=== PATIENT | female | born 1995 | race Hispanic/Latino ===

== ENCOUNTER 2018-05-12 10:37 | Emergency (ER) | payer SELFPAY ==
[2018-05-12 11:55] LABS: Urine Bacteria <20 /HPF (<20); Urine Culture Reflex Order NOT NEEDED; Urine Mucus 2+ /HPF (NONE SEEN)
[2018-05-12 12:05] LABS: Urine Blood TRACE (NEG); Urine Glucose NEGATIVE (NEG); Urine Protein NEGATIVE (NEG); Urine Specific Gravity 1.025 (1.005-1.030)
--- NOTE | 2018-05-12 12:05 | RAD REPORT ---
EXAM DESCRIPTION: US - Abdomen Exam Limited - 05/12/2018 11:57 am CLINICAL HISTORY: Abdominal pain, right upper quadrant pain COMPARISON: CT June 2015 FINDINGS: No gallstones, sludge or other abnormalities within the gallbladder lumen. There is no wal l thickening or pericholecystic fluid. No common duct stone or biliary tree dilatation identified. IMPRESSION: Normal gallbladder and biliary tree ultrasound.
[2018-05-12 12:09] LABS: Absolute Lymphocytes (CBC) 1.7 K/uL (0.7-4.9); Absolute Monocytes 0.7 K/uL (0.1-1.3); Absolute Neutrophil 6.3 K/uL (1.8-8.0); Basophils % 0.5 % (0-1.3); Eosinophils % 0.8 % (0-4.4); Hematocrit 40.8 % (36.0-45.0); Lymphocytes % 19.2 % (15.3-44.8); MCH 29.8 pg (27.0-35.0); MCV 87.1 fL (80-100); Monocytes % 7.8 % (3.3-12.3); RBC Red Blood Cell Count 4.69 M/uL (3.86-4.86)
[2018-05-12 12:27] LABS: ALT/SGPT 34 U/L (12-78); AST/SGOT 19 U/L (15-37); Albumin 4.6 g/dL (3.4-5.0); Alkaline Phosphatase 95 U/L (45-117); BUN Blood Urea Nitrogen 12 mg/dL (7-18); Bicarbonate 28 mmol/L (21-32); Bilirubin Direct 0.2 mg/dL (0-0.2); Bilirubin Total 0.8 mg/dL (0.2-1.0); Glucose Level 82 mg/dL (74-106); Potassium 3.6 mmol/L (3.5-5.1); Protein, Total 8.6 g/dL (6.4-8.2); Sodium Level 137 mmol/L (136-145)
[2018-05-12] MEDS ORDERED: ONDANSETRON 4 MG/2 ML VIAL ONE (13:26)
[2018-05-12] MEDS ORDERED: MORPHINE 4 MG/ML SYR ONE (13:27)
--- NOTE | 2018-05-12 14:07 | RAD REPORT ---
EXAM DESCRIPTION: US - Transvaginal Study Probe - 05/12/2018 1:55 pm CLINICAL HISTORY: ABD PAIN Pelvic pain. COMPARISON: No comparisons FINDINGS: The uterus is normal in size, shape and echotexture. The uterus measures 7.2 x 4.8 x 3.0 c m. The endometrial stripe measures 8 mm, normal. The patient's left fallopian tube and ovary has been removed. Right ovarian slightly complicated cyst is present measuring 3.6 x 3.5 cm. Overall, right ovarian siz e is 4.9 x 4.3 x 4.3 cm. Normal blood flow is seen to the right ovary. No significant pelvic ascites. IMPRESSION: Right ovarian cyst, likely physiologic, measuring 3.6 x 3.5 cm.
--- NOTE | 2018-05-12 14:33 | RAD REPORT ---
EXAM DESCRIPTION: CTAbdomen Pelvis W Contrast - 05/12/2018 2:22 pm CLINICAL HISTORY: Abdominal pain. RLQ;Abd pain COMPARISON: CT ABD PELVIS W CONTRAST dated 06/20/2015; Transvaginal Study Probe dated 05/12/2018 TECHNIQUE: Biphasic CT imaging of the abdomen and pelvis was performed with 100 ml non-ionic IV cont rast. All CT scans are performed using dose optimization technique as appropriate and may include automated exposure control or mA/KV adjustment according to patient size. FINDINGS: The lung bases are clear. The liver, spleen, pancreas, adrenal glands and kidneys are within normal limits. No bowel obstruction, free air, free fluid or abscess. The appendix is normal. No evidence of signi ficant lymphadenopathy. No suspicious bony findings. 3-4 cm right ovarian cyst noted, likely functional/ physiologic in etiol ogy. IMPRESSION: No acute intra-abdominal or pelvic finding. 3-4 cm right ovarian cyst noted as detailed.
[2018-05-12] MEDS ORDERED: MEPERIDINE HCL 25 MG/0.5 ML ONE (14:56)
--- NOTE | 2018-05-12 15:12 | ER ---
Nurse's Notes [facility] Name: Roxanna Nice Age: 23 yrs Sex: Female : 1995 Arrival Date: 05/12/2018 Time: 10:50 Bed 18 Private MD: None, None Diagnosis: Abdominal and pelvic pain;Other ovarian cysts Presentation: 05/12 11:16 Presenting complaint: RLQ pain and N/V since last night. Denies fever/diarrhea/urinary hb s/s. Transition of care: patient was not received from another setting of care. Onset of symptoms was May 11, 2018. Risk Assessment: Do you want to hurt yourself or someone else? Patient reports no desire to harm self or others. Initial Sepsis Screen: Does the patient meet any 2 criteria?. Care prior to arrival: None. 11:16 Method Of Arrival: Ambulatory hb 11:16 Acuity: ANA 3 hb 12:45 Initial Sepsis Screen: Does the patient have a suspected source of infection? No. em Patient's initial sepsis screen is negative. 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 - Social history:: Smoking status: Patient/guardian denies using tobacco. - Ebola Screening: : No symptoms or risks identified at this time. Screenin:34 Abuse screen: Denies threats or abuse. Denies injuries from another. Nutritional iw screening: No deficits noted. Tuberculosis screening: No symptoms or risk factors identified. Fall Risk IV access (20 points). Assessment: 11:45 General: Appears in no apparent distress. uncomfortable, Behavior is calm, cooperative, em Denies fever. Pain: Complains of pain in right lower quadrant Pain currently is 8 out of 10 on a pain scale. Neuro: Level of Consciousness is awake, alert, obeys commands, Oriented to person, place, time, situation. Cardiovascular: Capillary refill Patient's skin is warm and dry. Respiratory: Airway is patent Respiratory effort is even, unlabored, Respiratory pattern is regular, symmetrical. GI: Abdomen is flat, Bowel sounds present X 4 quads. Abd is soft X 4 quads Abdomen is tender to palpation in right lower quadrant Reports nausea, vomiting. : Urine is clear. EENT: No signs and/or symptoms were reported regarding the EENT system. Derm: Skin is intact, Skin is pink, warm \T\ dry. Musculoskeletal: Range of motion: intact in all extremities. 12:50 Reassessment: Patient appears in no apparent distress at this time. Patient and/or em family updated on plan of care and expected duration. Pain level reassessed. Patient is alert, oriented x 3, equal unlabored respirations, skin warm/dry/pink. pt request pain medication, rates pain 8/10, provider notified, new medication orders received. 13:33 Reassessment: Patient appears in no apparent distress at this time. Patient and/or iw family updated on plan of care and expected duration. Pain level reassessed. Patient is alert, oriented x 3, equal unlabored respirations, skin warm/dry/pink. pt rates pain 7/10 to RLQ, pt has been medicated for pain, pt updated on POC and CT time, call light within reach, curtain pulled for privacy. 14:30 Reassessment: Patient appears in no apparent distress at this time. Patient and/or em family updated on plan of care and expected duration. Pain level reassessed. Patient is alert, oriented x 3, equal unlabored respirations, skin warm/dry/pink. reports pain medication did not help, provider notified, new medication orders received. 14:55 Reassessment: pt currently resting with eyes closed, reports pain is intermittent, em reports no pain currently. Vital Signs: 11:17 BP 140 / 84; Pulse 76; Resp 16; Temp 98.1; Pulse Ox 100% on R/A; Pain 9/10; hb 13:32 BP 130 / 74; Pulse 91; Resp 16; Pulse Ox 100% on R/A; Pain 7/10; iw 14:41 BP 141 / 75; Pulse 83; Resp 16; Pulse Ox 99% on R/A; Pain 8/10; em 15:35 BP 142 / 67; Pulse 81; Resp 16; Pulse Ox 100% on R/A; Pain 0/10; em ED Course: 10:50 Patient arrived in ED. mr 10:50 None, None is Private Physician. mr 11:17 Triage completed. hb 11:21 Lucas Capellan MD is Attending Physician. kdr 11:25 Jose Eduardo Hinson LVN is Primary Nurse. em 11:39 Urine collected: clean catch specimen, clear, jahaira colored, Amount Voided: 80mL. jp3 11:39 Urine Culture Sent. jp3 11:39 Urine Microscopic Only Sent. jp3 11:57 US Abdomen Limited In Process Unspecified. EDMS 12:00 Initial lab(s) drawn, by me, sent to lab. Inserted saline lock: 20 gauge in right jp3 antecubital area, using aseptic technique. Blood collected. 12:13 Patient has correct armband on for positive identification. Placed in gown. Bed in low jp3 position. Call light in reach. Side rails up X 1. Warm blanket given. Pillow given. Pulse ox on. NIBP on. 12:14 Creatinine for Radiology Sent. jp3 12:14 Hepatic Function Sent. jp3 12:14 CBC with Diff Sent. jp3 12:14 Basic Metabolic Panel Sent. jp3 13:32 Arm band placed on. iw 13:48 US Transvaginal Study (Probe) In Process Unspecified. EDMS 13:49 Ultrasound completed. Patient moved back from ultrasound. lc3 14:24 CT Abd/Pelvis - W/Contrast In Process Unspecified. EDMS 15:33 No provider procedures requiring assistance completed. IV discontinued, intact, em bleeding controlled, No redness/swelling at site. Pressure dressing applied. Administered Medications: 13:31 Drug: Zofran 4 mg Route: IVP; Site: right antecubital; iw 14:46 Follow up: Response: No adverse reaction em 13:32 Drug: morphine 4 mg Route: IVP; Site: right antecubital; iw 14:46 Follow up: Response: No adverse reaction em 15:38 Not Given (Physician Discretion): Demerol 25 mg IVP once em Outcome: 15:07 Discharge ordered by . kdr 15:42 Discharged to home ambulatory. em 15:42 Condition: good 15:42 Discharge instructions given to patient, Instructed on discharge instructions, follow up and referral plans. medication usage, Demonstrated understanding of instructions, follow-up care, medications, Prescriptions given X 3. 15:42 Patient left the ED. em Signatures: Dispatcher [employer] EDMS Lucas Capellan MD MD kdr Rivera, Mary mr Sravan, Jose Eduardo, [address] em Stormy Mujica, JENNIFER RN Girish Russell Heather, RN RN Samuel Sosa jp3
--- NOTE | 2018-05-12 15:13 | EDPHYS ---
Physician Documentation [facility] Name: Roxanna Nice Age: 23 yrs Sex: Female : 1995 Arrival Date: 05/12/2018 Time: 10:50 Bed 18 Private MD: None, None ED Physician Lucas Capellan HPI: 05/12 11:53 This 23 yrs old Female presents to ER via Ambulatory with complaints of kdr Abdominal Pain. 11:53 The patient presents with abdominal pain right lower quadrant. Onset: The kdr symptoms/episode began/occurred yesterday, last night. The symptoms do not radiate. Associated signs and symptoms: Pertinent positives: nausea and vomiting, headache, Pertinent negatives: anorexia, blood in stools, chest pain, constipation, diarrhea, dysuria, fever, headache, hematuria, palpitations, shortness of breath, vaginal discharge, vomiting, vomiting blood. The symptoms are described as achy, crampy, intermittent, waxing/waning. Modifying factors: The symptoms are alleviated by nothing, the symptoms are aggravated by breathing deeply, movement, pressure, touching the area, walking. Severity of pain: At its worst the pain was moderate in the emergency department the pain has improved moderately. The patient has not experienced similar symptoms in the past. The patient has not recently seen a physician. The patient has only one fallopian tube on the right. 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 - Social history:: Smoking status: Patient/guardian denies using tobacco. - Ebola Screening: : No symptoms or risks identified at this time. ROS: 11:53 Constitutional: Negative for fever, chills, and weight loss, Eyes: Negative for injury, kdr pain, redness, and discharge, ENT: Negative for injury, pain, and discharge, Neck: Negative for injury, pain, and swelling, Cardiovascular: Negative for chest pain, palpitations, and edema, Respiratory: Negative for shortness of breath, cough, wheezing, and pleuritic chest pain, Back: Negative for injury and pain, : Negative for injury, bleeding, discharge, and swelling, MS/Extremity: Negative for injury and deformity, Skin: Negative for injury, rash, and discoloration, Neuro: Negative for headache, weakness, numbness, tingling, and seizure activity. Psych: Negative for depression, anxiety, suicide ideation, homicidal ideation, and hallucinations, Allergy/Immunology: Negative for hives, rash, and allergies, Endocrine: Negative for neck swelling, polydipsia, polyuria, polyphagia, and marked weight changes, Hematologic/Lymphatic: Negative for swollen nodes, abnormal bleeding, and unusual bruising. 11:53 Abdomen/GI: Positive for abdominal pain, Negative for nausea, vomiting, and diarrhea, abdominal distension, black/tarry stool, rectal pain, rectal bleeding, bowel incontinence. Exam: 11:53 Constitutional: This is a well developed, well nourished patient who is awake, alert, kdr and in no acute distress. Head/Face: Normocephalic, atraumatic. Eyes: Pupils equal round and reactive to light, extra-ocular motions intact. Lids and lashes normal. Conjunctiva and sclera are non-icteric and not injected. Cornea within normal limits. Periorbital areas with no swelling, redness, or edema. ENT: Nares patent. No nasal discharge, no septal abnormalities noted. Tympanic membranes are normal and external auditory canals are clear. Oropharynx with no redness, swelling, or masses, exudates, or evidence of obstruction, uvula midline. Mucous membranes moist. Neck: Trachea midline, no thyromegaly or masses palpated, and no cervical lymphadenopathy. Supple, full range of motion without nuchal rigidity, or vertebral point tenderness. No Meningismus. Chest/axilla: Normal chest wall appearance and motion. Nontender with no deformity. No lesions are appreciated. Cardiovascular: Regular rate and rhythm with a normal S1 and S2. No gallops, murmurs, or rubs. Normal PMI, no JVD. No pulse deficits. Respiratory: Lungs have equal breath sounds bilaterally, clear to auscultation and percussion. No rales, rhonchi or wheezes noted. No increased work of breathing, no retractions or nasal flaring. Abdomen/GI: Soft, non-tender, with normal bowel sounds. No distension or tympany. No guarding or rebound. No evidence of tenderness throughout. Back: No spinal tenderness. No costovertebral tenderness. Full range of motion. Skin: Warm, dry with normal turgor. Normal color with no rashes, no lesions, and no evidence of cellulitis. MS/ Extremity: Pulses equal, no cyanosis. Neurovascular intact. Full, normal range of motion. Neuro: Awake and alert, GCS 15, oriented to person, place, time, and situation. Cranial nerves II-XII grossly intact. Motor strength 5/5 in all extremities. Sensory grossly intact. Cerebellar exam normal. Normal gait. Psych: Awake, alert, with orientation to person, place and time. Behavior, mood, and affect are within normal limits. Vital Signs: 11:17 BP 140 / 84; Pulse 76; Resp 16; Temp 98.1; Pulse Ox 100% on R/A; Pain 9/10; hb 13:32 BP 130 / 74; Pulse 91; Resp 16; Pulse Ox 100% on R/A; Pain 7/10; iw 14:41 BP 141 / 75; Pulse 83; Resp 16; Pulse Ox 99% on R/A; Pain 8/10; em 15:35 BP 142 / 67; Pulse 81; Resp 16; Pulse Ox 100% on R/A; Pain 0/10; em MDM: 15:07 Patient medically screened. kdr 17:50 Data reviewed: vital signs, nurses notes, lab test result(s), radiologic studies. kdr Counseling: I had a detailed discussion with the patient and/or guardian regarding: the historical points, exam findings, and any diagnostic results supporting the discharge/admit diagnosis, lab results, radiology results, the need for outpatient follow up. 05/12 11:01 Order name: Urine Culture snw 05/12 11:01 Order name: Urine Microscopic Only; Complete Time: 13:00 snw 05/12 11:39 Order name: Basic Metabolic Panel; Complete Time: 13:00 kdr 12 11:39 Order name: CBC with Diff; Complete Time: 13:00 kdr 12 11:39 Order name: Creatinine for Radiology; Complete Time: 13:00 kdr 12 11:39 Order name: Hepatic Function; Complete Time: 13:00 kdr 12 11:39 Order name: CT Abd/Pelvis - W/Contrast; Complete Time: 15:05 kdr 12 11:39 Order name: US Abdomen Limited; Complete Time: 13:00 kdr 05/12 12:01 Order name: Urine Dipstick--Ancillary (enter results); Complete Time: 13:00 bd 05/12 12:01 Order name: Urine --Ancillary (enter results); Complete Time: 13:00 bd 05/12 13:04 Order name: US Transvaginal Study (Probe); Complete Time: 15:05 kdr 05/12 11:01 Order name: Urine Test (obtain specimen); Complete Time: 11:39 snw 05/12 11:01 Order name: Urine Dipstick-Ancillary (obtain specimen); Complete Time: 11:39 snw 05/12 11:39 Order name: IV Saline Lock; Complete Time: 12:14 kdr 12 11:39 Order name: Labs collected and sent; Complete Time: 12:14 kdr Administered Medications: 13:31 Drug: Zofran 4 mg Route: IVP; Site: right antecubital; iw 14:46 Follow up: Response: No adverse reaction em 13:32 Drug: morphine 4 mg Route: IVP; Site: right antecubital; iw 14:46 Follow up: Response: No adverse reaction em 15:38 Not Given (Physician Discretion): Demerol 25 mg IVP once em Disposition: 05/12/18 15:07 Discharged to Home. Impression: Abdominal and pelvic pain, Other ovarian cysts. - Condition is Stable. - Discharge Instructions: Abdominal Pain, Adult, [id number], Ovarian Cyst, [id number]. - Prescriptions for Bentyl 20 mg Oral Tablet - take 1 tablet by ORAL route every 6 hours As needed; 20 tablet. Pepcid 20 mg Oral Tablet - take 1 tablet by ORAL route every 12 hours for 5 days; 10 tablet. Tramadol 50 mg Oral Tablet - take 1 tablet by ORAL route every 8 hours as needed; 12 tablet. - Medication Reconciliation Form, Thank You Letter, Antibiotic Education form. - Follow up: Private Physician; When: 2 - 3 days; Reason: If symptoms return, Further diagnostic work-up, Recheck today's complaints, Continuance of care, Re-evaluation by your physician. - Problem is new. - Symptoms have improved. Signatures: Dispatcher [employer] Lucas Fisher MD MD kdr Lori Flynn, STRAP MAKING MACHINE OPERATOR-C STRAP MAKING MACHINE OPERATOR-Csnw Jose Eduardo Hinson, MEDICAID SPECIALIST MEDICAID SPECIALIST em Stormy Mujica RN RN iw Steffanie Tyson RN RN Corrections: (The following items were deleted from the chart) 15:42 15:07 05/12/2018 15:07 Discharged to Home. Impression: Abdominal and pelvic pain; Other em ovarian cysts. Condition is Stable. Forms are Medication Reconciliation Form, Thank You Letter, Antibiotic Education, Prescription Opioid Use. Follow up: Private Physician; When: 2 - 3 days; Reason: If symptoms return, Further diagnostic work-up, Recheck today's complaints, Continuance of care, Re-evaluation by your physician. Problem is new. Symptoms have improved. kdr
[2018-05-12 16:18] VITALS: TEMP 98.1; O2SAT 100
[2018-05-12 16:25] VITALS: BP 142/67
== END 2018-05-12 15:42 | disposition home or self-care (01) ==
LOC: ER 10:37
DX: N83.299 Other ovarian cyst, unspecified side (principal)
CPT/HCPCS: 36415; 74177; 76705; 76830; 80048; 80076; 81003; 81015; 81025; 85025; 87086; 87088; 96374; 96375; 99284; J2175; J2405; Q9967

== ENCOUNTER 2019-02-26 14:34 | Emergency (ER) | payer SELFPAY ==
--- NOTE | 2019-02-26 16:41 | ER ---
Nurse's Notes [facility] Name: Roxanna Nice Age: 23 yrs Sex: Female : 1995 Arrival Date: 02/26/2019 Time: 14:38 Bed 23 Private MD: Diagnosis: Unspecified sprain of left foot Presentation: 02/26 14:45 Presenting complaint: Patient states: LEFT FOOT SPRAIN x3 DAYS AGO. Transition of care: bp patient was not received from another setting of care. Onset of symptoms is unknown. Risk Assessment: Do you want to hurt yourself or someone else? Patient reports no desire to harm self or others. Initial Sepsis Screen: Does the patient meet any 2 criteria? No. Patient's initial sepsis screen is negative. Does the patient have a suspected source of infection? No. Patient's initial sepsis screen is negative. Care prior to arrival: None. 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 - Social history:: Smoking status: Patient/guardian denies using tobacco. - Ebola Screening: : No symptoms or risks identified at this time. Screenin:34 Abuse screen: Denies threats or abuse. Denies injuries from another. Nutritional rv screening: No deficits noted. Tuberculosis screening: No symptoms or risk factors identified. Fall Risk None identified. Assessment: 15:13 General: Appears in no apparent distress. comfortable, Behavior is calm, cooperative. rv 15:33 Pain: Denies pain. Neuro: Level of Consciousness is awake, alert, obeys commands, rv Oriented to person, place, time, situation. Cardiovascular: Patient's skin is warm and dry. Respiratory: Airway is patent. GI: No signs and/or symptoms were reported involving the gastrointestinal system. : No signs and/or symptoms were reported regarding the genitourinary system. EENT: No signs and/or symptoms were reported regarding the EENT system. Derm: Bruising that is dark purple, on dorsum of right foot. Musculoskeletal: Swelling present in dorsum of right foot. Vital Signs: 14:46 BP 132 / 78; Pulse 84; Resp 18; Temp 98.2; Pulse Ox 100% ; Weight 68.04 kg; Height 5 bp ft. 3 in. (160.02 cm); 16:53 BP 127 / 76; Pulse 81; Resp 15; Temp 98; Pulse Ox 100% on R/A; rv 14:46 Body Mass Index 26.57 (68.04 kg, 160.02 cm) bp ED Course: 14:38 Patient arrived in ED. mr 14:45 Triage completed. bp 14:46 Arm band placed on right wrist. bp 14:49 Keven Deras PA is PHCP. jmm 14:49 Natan Davsi MD is Attending Physician. jmm 15:02 Jason Sharma PA is PHCP. jmm 15:13 Atif Conley, JENNIFER is Primary Nurse. rv 15:34 Patient has correct armband on for positive identification. Bed in low position. Call rv light in reach. Side rails up X 1. Pulse ox on. NIBP on. 16:44 Foot Left 3 View XRAY In Process Unspecified. EDMS 16:53 No provider procedures requiring assistance completed. Patient did not have IV access rv during this emergency room visit. Administered Medications: No medications were administered Outcome: 16:40 Discharge ordered by MD. beth 16:54 Discharged to home ambulatory. rv 16:54 Condition: good 16:54 Discharge instructions given to patient, Instructed on discharge instructions, follow up and referral plans. medication usage, Demonstrated understanding of instructions, follow-up care, medications, Prescriptions given X 1. 16:55 Patient left the ED. rv Signatures: Dispatcher [employer] EDMS Keven Deras PA PA jmm Hoa Gonzalez mr Jason Sharma PA PA jrDarian Waters, JENNIFER RN Atif Lozada, JENNIFER RN rv
--- NOTE | 2019-02-26 16:41 | EDPHYS ---
Physician Documentation [facility] Name: Roxanna Nice Age: 23 yrs Sex: Female : 1995 Arrival Date: 02/26/2019 Time: 14:38 Bed 23 Private MD: ED Physician Natan Davis HPI: 02/26 15:17 This 23 yrs old Female presents to ER via Ambulatory with complaints of Foot jr8 Injury. 15:17 The patient presents with pain, that is acute. The complaints affect the dorsum of jr8 right foot. Context: The problem was sustained at home, resulted from a mis-step, the patient is able to ambulate, with mild difficulty. Onset: The symptoms/episode began/occurred 2 day(s) ago. Modifying factors: the symptoms are aggravated by weight bearing. Treatment prior to arrival includes: no previous treatment. Severity of symptoms: At their worst the symptoms were mild, in the emergency department the symptoms are unchanged. Pt reports that on Saturday 02/24 She was wearing heels and had a mis-step and planted her toes. Pt reports pain since the injury to the dorsum of the left foot. . 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 - Social history:: Smoking status: Patient/guardian denies using tobacco. - Ebola Screening: : No symptoms or risks identified at this time. ROS: 15:17 Constitutional: Negative for fever, chills, and weight loss, Eyes: Negative for injury, jr8 pain, redness, and discharge, ENT: Negative for injury, pain, and discharge, Neck: Negative for injury, pain, and swelling, Cardiovascular: Negative for chest pain, palpitations, and edema, Respiratory: Negative for shortness of breath, cough, wheezing, and pleuritic chest pain, Abdomen/GI: Negative for abdominal pain, nausea, vomiting, diarrhea, and constipation, Back: Negative for injury and pain, : Negative for injury, bleeding, discharge, and swelling, Skin: Negative for injury, rash, and discoloration, Neuro: Negative for headache, weakness, numbness, tingling, and seizure. 15:17 MS/extremity: Positive for pain, of the dorsum of right foot. Exam: 15:17 Constitutional: This is a well developed, well nourished patient who is awake, alert, jr8 and in no acute distress. Head/Face: Normocephalic, atraumatic. Eyes: Pupils equal round and reactive to light, extra-ocular motions intact. Lids and lashes normal. Conjunctiva and sclera are non-icteric and not injected. Cornea within normal limits. Periorbital areas with no swelling, redness, or edema. ENT: Nares patent. No nasal discharge, no septal abnormalities noted. Tympanic membranes are normal and external auditory canals are clear. Oropharynx with no redness, swelling, or masses, exudates, or evidence of obstruction, uvula midline. Mucous membranes moist. Neck: Trachea midline, no thyromegaly or masses palpated, and no cervical lymphadenopathy. Supple, full range of motion without nuchal rigidity, or vertebral point tenderness. No Meningismus. Chest/axilla: Normal chest wall appearance and motion. Nontender with no deformity. No lesions are appreciated. Cardiovascular: Regular rate and rhythm with a normal S1 and S2. No gallops, murmurs, or rubs. Normal PMI, no JVD. No pulse deficits. Respiratory: Lungs have equal breath sounds bilaterally, clear to auscultation and percussion. No rales, rhonchi or wheezes noted. No increased work of breathing, no retractions or nasal flaring. Back: No spinal tenderness. No costovertebral tenderness. Full range of motion. 15:17 Musculoskeletal/extremity: Extremities: noted in the dorsum of right foot: pain, ROM: intact in all extremities, Pulses: are normal with no appreciated deficits, Sensation intact. Joints: All joints appear normal with full range of motion. Vital Signs: 14:46 BP 132 / 78; Pulse 84; Resp 18; Temp 98.2; Pulse Ox 100% ; Weight 68.04 kg; Height 5 bp ft. 3 in. (160.02 cm); 16:53 BP 127 / 76; Pulse 81; Resp 15; Temp 98; Pulse Ox 100% on R/A; rv 14:46 Body Mass Index 26.57 (68.04 kg, 160.02 cm) bp MDM: 15:14 Patient medically screened. jr8 16:38 Data reviewed: vital signs, nurses notes, radiologic studies, plain films. Data jr8 interpreted: Pulse oximetry: on room air is 100 %. Interpretation: normal. Test interpretation: by ED physician or midlevel provider: plain radiologic studies. Counseling: I had a detailed discussion with the patient and/or guardian regarding: the historical points, exam findings, and any diagnostic results supporting the discharge/admit diagnosis, radiology results. ED course: Pt reports pain with weight bearing, and walking with significant limp, discussed adam wrap and use of crutches to limit weight bearing. . 02/26 15:05 Order name: Foot Left 3 View XRAY rv 02/26 16:38 Order name: Crutches jr8 02/26 16:38 Order name: Adam Wrap; Complete Time: 16:51 jr8 Administered Medications: No medications were administered Disposition: 02/26/19 16:40 Discharged to Home. Impression: Unspecified sprain of left foot. - Condition is Stable. - Discharge Instructions: Crutch Use, RICE for Routine Care of Injuries. - Prescriptions for Ibuprofen 600 mg Oral Tablet - take 1 tablet by ORAL route every 6 hours As needed take with food; 30 tablet. - Medication Reconciliation Form, Thank You Letter, Work release form form. - Follow up: Private Physician; When: As needed; Reason: Recheck today's complaints, Continuance of care. - Problem is new. - Symptoms have improved. Signatures: Dispatcher [employer] EDMS Jason Sharma PA PA jr8 Darian Fitzpatrick RN RN Atif Lozada RN RN rv Corrections: (The following items were deleted from the chart) 16:55 16:40 02/26/2019 16:40 Discharged to Home. Impression: Unspecified sprain of left foot. rv Condition is Stable. Forms are Medication Reconciliation Form, Thank You Letter, Antibiotic Education, Prescription Opioid Use. Follow up: Private Physician; When: As needed; Reason: Recheck today's complaints, Continuance of care. Problem is new. Symptoms have improved. jr8
--- NOTE | 2019-02-26 17:38 | RAD REPORT ---
EXAM DESCRIPTION: RAD - Foot Left 3 View - 02/26/2019 4:43 pm CLINICAL HISTORY: Left Foot pain FINDINGS: No fracture is seen. The medial aspect of the base of fourth metatarsal is offset with respect to the cuboid. This is nons pecific but may indicate an injury to the ligament. If the patient has clinical symptoms to suggest t his further evaluation with MRI would be recommended
[2019-02-26 18:51] VITALS: O2SAT 100
[2019-02-26 18:54] VITALS: BP 127/76; TEMP 98
== END 2019-02-26 16:55 | disposition home or self-care (01) ==
LOC: ER 14:34
DX: S93.602A Unspecified sprain of left foot, initial encounter (principal); X58.XXXA Exposure to other specified factors, initial encounter; Y93.89 Activity, other specified; Y92.009 Unspecified place in unspecified non-institutional (private) residence as the place of occurrence of the external cause
CPT/HCPCS: 99283

== ENCOUNTER 2023-09-12 18:36 | Emergency (ER) | payer OTHER, SELFPAY ==
--- OUTSIDE RECORDS SUMMARY | 2023-09-12 18:39 | XMS REPORT | Continuity of Care Document ---
Author Name Unknown Address [address] [facility] [address] [place] [address] [facility] Address [address] [facility] [address] [place] [address] Care Team Providers Care Inspector [employer] Name Role Phone Helio SALAZAR, [facility] Primary Care Physician [phone] Yuridia Thakkar Attending Clinician Unavailable Payers Payer Name Policy Type Policy Number Effective Date Expirati on Date Source Allergies, Adverse Reactions, Alerts Allergy Name Allergy Type Status Severity Reaction(s) Onset Date Inactive Date Treating Clinician Comments Source Unable to Assess DA Active U 2020-06 00:00: 00 [facility] Medications Ordered Medication Name Filled Medication Name Start Date Stop Date Current Medication? Ordering Clinician Indication Dosage Frequency Signature (SIG) Comments Components Source TAKE 1 TABLET BY MOUTH DAILY 02-09 00:00: 00 No Augmentin 875 mg-125 mg tablet 18 00:00: 00 No 1mg metronidazo le 500 mg tablet 8-11 00:00: 00 No 1mg fluconazole 150 mg tablet 8-06 00:00: 00 No 1mg amoxicillin 500 mg capsule 4-14 00:00: 00 No 1mg Diflucan 150 mg tablet -17 00:00: 00 No 1mg Diflucan 150 mg tablet 3-16 00:00: 00 No 1mg Flagyl 500 mg tablet 3-16 00:00: 00 No 1mg Flagyl 500 mg tablet 2018-06 2-16 00:00: 00 No 1mg Flagyl 500 mg tablet 02-28 00:00: 00 No 1mg Flagyl 500 mg tablet 01-05 00:00: 00 No 1mg Flagyl 500 mg tablet 12-16 00:00: 00 No 1mg Diflucan 150 mg tablet 11-05 00:00: 00 No 1mg Flagyl 500 mg tablet 10-26 00:00: 00 No 1mg azithromyci n 500 mg tablet 2014-06 00:00: 00 No 2mg Diflucan 200 mg tablet 2014-06 00:00: 00 No 1mg Bactrim DS 800 mg-160 mg tablet 2014-06 00:00: 00 No 1mg Vital Signs Vital Name Observation Time Observation Value Comments S ource BP Systolic 2022-02-25 09:12:00 137 mm[Hg] BP Diastolic 2022-02-25 09:12:00 88 mm[Hg] Weight Measured 2022-02-25 09:12:00 172.41 pounds Height Measured 2022-02-25 09:12:00 61.50 inches Body Temperature 2022-02-25 09:12:00 98.40 degrees Heart Rate 2022-02-25 09:12:00 68.00 /min Respiratory Rate 2022-02-25 09:12:00 Height Measured 2021-09-10 16:32:00 61.50 inches Body Temperature 2021-09-10 16:32:00 98.10 degrees Heart Rate 2021-09-10 16:32:00 104.00 /min Respiratory Rate 2021-09-10 16:32:00 BP Systolic 2021-09-10 16:32:00 141 mm[Hg] BP Diastolic 2021-09-10 16:32:00 86 mm[Hg] Weight Measured 2021-09-10 16:32:00 174.00 pounds BP Systolic 2021-04-23 13:32:00 138 mm[Hg] BP Diastolic 2021-04-23 13:32:00 82 mm[Hg] Weight Measured 2021-04-23 13:32:00 167.60 pounds Height Measured 2021-04-23 13:32:00 61.50 inches Body Temperature 2021-04-23 13:32:00 97.20 degrees Heart Rate 2021-04-23 13:32:00 64.00 /min Respiratory Rate 2021-04-23 13:32:00 BP Systolic 2021-03-04 17:26:00 BP Diastolic 2021-03-04 17:26:00 Weight Measured 2021-03-04 17:26:00 169.40 pounds Height Measured 2021-03-04 17:26:00 61.50 inches Body Temperature 2021-03-04 17:26:00 98.50 degrees Heart Rate 2021-03-04 17:26:00 76.00 /min Respiratory Rate 2021-03-04 17:26:00 21.00 /min BP Systolic 2021-01-09 16:51:00 136 mm[Hg] BP Diastolic 2021-01-09 16:51:00 78 mm[Hg] Weight Measured 2021-01-09 16:51:00 161.80 pounds Height Measured 2021-01-09 16:51:00 61.50 inches Body Temperature 2021-01-09 16:51:00 98.60 degrees Heart Rate 2021-01-09 16:51:00 77.00 /min Respiratory Rate 2021-01-09 16:51:00 BP Systolic 2020-09-12 13:23:00 142 mm[Hg] BP Diastolic 2020-09-12 13:23:00 88 mm[Hg] Weight Measured 2020-09-12 13:23:00 148.00 pounds Height Measured 2020-09-12 13:23:00 61.50 inches Body Temperature 2020-09-12 13:23:00 99.10 degrees Heart Rate 2020-09-12 13:23:00 73.00 /min Respiratory Rate 2020-09-12 13:23:00 17.00 /min BP Systolic 2019-12-21 14:48:00 138 mm[Hg] BP Diastolic 2019-12-21 14:48:00 89 mm[Hg] Weight Measured 2019-12-21 14:48:00 154.20 pounds Height Measured 2019-12-21 14:48:00 61.50 inches Body Temperature 2019-12-21 14:48:00 98.90 degrees Heart Rate 2019-12-21 14:48:00 86.00 /min Respiratory Rate 2019-12-21 14:48:00 17.00 /min BP Systolic 2019-08-20 08:11:00 127 mm[Hg] BP Diastolic 2019-08-20 08:11:00 75 mm[Hg] Weight Measured 2019-08-20 08:11:00 150.40 pounds Height Measured 2019-08-20 08:11:00 61.50 inches Body Temperature 2019-08-20 08:11:00 97.40 degrees Heart Rate 2019-08-20 08:11:00 82.00 /min Respiratory Rate 2019-08-20 08:11:00 BP Systolic 2019-07-12 16:56:00 124 mm[Hg] BP Diastolic 2019-07-12 16:56:00 79 mm[Hg] Weight Measured 2019-07-12 16:56:00 144.60 pounds Height Measured 2019-07-12 16:56:00 61.50 inches Body Temperature 2019-07-12 16:56:00 98.50 degrees Heart Rate 2019-07-12 16:56:00 92.00 /min Respiratory Rate 2019-07-12 16:56:00 17.00 /min Plan of Care Planned Activity Planned Date Details Comments Source Goal Plan of Care Note [code = 09670-0] Goal Plan of Care Note [code = 81996-2] Goal Plan of Care Note [code = 58152-9] Goal Plan of Care Note [code = 56618-5] Goal Plan of Care Note [code = 75567-8] Goal Plan of Care Note [code = 17556-1] Goal Plan of Care Note [code = 56999-8] Goal Plan of Care Note [code = 23261-1] Goal Plan of Care Note [code = 76412-0] Goal Plan of Care Note [code = 99481-0] Goal Plan of Care Note [code = 97647-8] Goal Plan of Care Note [code = 98848-2] Goal Plan of Care Note [code = 10844-0] Goal Plan of Care Note [code = 95139-3] Goal Plan of Care Note [code = 79934-1] Goal Plan of Care Note [code = 71475-7] Goal Plan of Care Note [code = 16497-5] Goal Plan of Care Note [code = 65414-1] Goal Plan of Care Note [code = 28205-8] Goal Plan of Care Note [code = 57640-1] Goal Plan of Care Note [code = 02993-6] Goal Plan of Care Note [code = 50798-1] Goal Plan of Care Note [code = 12025-7] Goal Plan of Care Note [code = 69853-6] Goal Plan of Care Note [code = 05790-0] Goal Plan of Care Note [code = 95466-4] Encounters Start Date/Time End Date/Time Encounter Type Admission Type Attending [facility] Care Department Encounter ID Source 2021-05-21 07:00:00 Inpatient Yuridia Thakkar [facility] [place] [id number] 2023-09-07 09:54:42 2023-09-07 09:54:42 Outpatient [facility] [id number] Artemio Barger 2023-09-01 11:06:46 2023-09-01 11:06:46 Outpatient [facility] [id number] Artemio Ann Charbel 2022-06-10 14:49:52 2022-06-10 14:49:52 Outpatient [facility] [id number] Artemio Ann Charbel 2022-03-19 08:07:17 2022-03-19 08:07:17 Outpatient [facility] [id number] Artemio Barger 2022-02-25 00:00:00 2022-02-25 00:00:00 Outpatient Visit [id number] Results Test Description Test Time Test Comments Results Result Co mments Source CULTURE, [id number] 09:29:28SPECIMEN NUMBER: [id number] CULTURE, URINE SPECIMEN NUMBER: [id number] SPECIMEN COMMENT: URINE SOURCE: URINE REPORT STATUS: FINAL FINAL REPORT: 09/03/2023 10-50,000 CFU/ML UROGENITAL CONCETTA PRESENT NO C OMMON PATHOGENS UNLESS OTHERWISE INDICATED, ALL TESTING PERFORMED AT [facility] [address] [place] [address] BATCH MIXING TRUCK DRIVER: Dilcia ECHOLSIA NUMBER [id number] [facility] [place]. [id number] TEST, THINPREP, [id number] 17:25:25* Test Item Value Reference Range Interpretation Comme nts SOURCE: (test code = 8001) Cervical/Endoc ervical SLIDES: (test code = 8011) 1 LMP: (test code = 8021) 07/25/2022 SPECIMEN ADEQUACY: (test code = 87172) (NOTE) Satisfactory for evaluation. Endocervical cells/transformation zone component present. INTERPRETATION: (test code = 07221) NILM/NO EPITH. ABNORMALITY;SE E BELOW ---- NEGATIVE FOR INTRAEPITHELIAL LESION OR MALIGNANCY (NILM) - MACHINERY ERECTOR : (test code = 8101) Vamshi Hawkins LOCATION: (test code = 02415) (NOTE) Specimens proces sed and interpreted at [facility], [address] [place] [address], , CLIA: [id number] CPT: (test code = 8140) (NOTE) [address] UNLESS OTH ERWISE INDICATED, COMPUTER AIDED AND MACHINERY ERECTOR SCREENING PERFORMED. The Pap test is a screening test with an inherent, but low probability of error. Your patient should be reminded to consult you immediately if she experiences any suspicious signs or symptoms, regardless of her Pap test result. An alternate report format containing images or consolidated prior Pap history is available as applicable. HPV HIGH RISK WITH GENOTYPE, [id number] 17:17:45* Test Item Value Reference Range Interpretation Comme nts HPV HIGH RISK INTERP (test code = 97002) NEGATIVE NEGATIVE HPV 16 (test code = 55279) NEGATIVE HPV 18 (test code = 49893) NEGATIVE HPV, HR, OTHER GENOTYPES (test code = 94679) NEGATIVE Testing methodol ogy is real-time PCR utilizing hydrolysis probes with the Louis Estevan system. The test individually detects genotypes 16 and 18, as well as the other 12 high risk types (31,33,35,39,45,51,52,56 ,58,59,66,68). The expected result is negative. A negative result does not rule out the presence of HPV not included in the genotype set, a low level of infection or specimen sampling error. UNLESS OTHERWISE INDICATED, ALL TESTING PERFORMED AT [facility] [address] [place] [address] BATCH MIXING TRUCK DRIVER: YUN FOWLER M.D. [place] NUMBER [id number] [facility] [place]. [id number] COMPREHENSIVE METABOLIC [id number] 05:58:13* Test Item Value Reference Range Interpretation Comme nts GLUCOSE (test code = 2217) 101 MG/DL 70-99 H BUN (test code = 2208) 9 MG/DL 6-20 CREATININE (test code = 2214) 0.63 MG/DL 0.60-1.30 eGFR (2020 CKD-EPI) (test code = 35561) 125 ML/MIN/1.73 >60 CALC BUN/CREAT (test code = 2235) 14 RATIO 6-28 SODIUM (test code = 2231) 139 MEQ/L 133-146 POTASSIUM (test code = 2228) 4.5 MEQ/L 3.5-5.4 CHLORIDE (test code = 2215) 101 MEQ/L 95-107 CARBON DIOXIDE (test code = 2206) 23 MEQ/L 19-31 CALCIUM (test code = 2209) 9.8 MG/DL 8.5-10.5 PROTEIN, TOTAL (test code = 222) 7.9 G/DL 6.1-8.3 ALBUMIN (test code = 2201) 4.8 G/DL 3.5-5.2 CALC GLOBULIN (test code = 2240) 3.1 G/DL 1.9-3.7 CALC A/G RATIO (test code = 2234) 1.5 RATIO 1.0-2.6 BILIRUBIN, TOTAL (test code = 7) 0.5 MG/DL See_Comment [Automated me ssage] The system which generated this result transmitted reference range: <=1.2. The reference range was not used to interpret this result as normal/abnormal. ALKALINE PHOSPHATASE (test code = 2204) 113 U/L 40-112 H AST (test code = 2218) 23 U/L 9-40 ALT (test code = 2219) 19 U/L 5-40 CBC W/AUTO DIFF WITH [id number] 02:17:19* Test Item Value Reference Range Interpretation Comme nts WBC (test code = 1001) 8.7 K/UL 3.5-11.0 RBC (test code = 1002) 4.73 M/UL 3.80-5.40 HEMOGLOBIN (test code = 1003) 13.4 G/DL 11.5-15.5 HEMATOCRIT (test code = 1004) 39.4 % 34.0-45.0 MCV (test code = 1005) 83.3 fL 80.0-99.0 MCH (test code = 1006) 28.3 PG 25.0-33.0 MCHC (test code = 1007) 34.0 G/DL 31.0-36.0 RDW (test code = 1038) 13.0 % 11.5-15.0 NEUTROPHILS (test code = 1008) 63.6 % LYMPHOCYTES (test code = 1010) 27.9 % MONOCYTES (test code = 1011) 6.2 % EOSINOPHILS (test code = 1012) 1.1 % BASOPHILS (test code = 1013) 0.7 % IMMATURE GRANULOCYTES (test code = 1036) 0.5 % NUCLEATED RBCS (test code = 1065) 0.0 /100 WBC'S See_Comment [Automated message] The system which generated this result transmitted reference range: 0.0. The reference range was not used to interpret this result as normal/abnormal. PLATELET COUNT (test code = 1015) 307 K/UL 130-400 ABSOLUTE NEUTROPHILS (test code = 1066) 5.55 K/UL 1.50-7.50 ABSOLUTE LYMPHOCYTES (test code = 1067) 2.44 K/UL 1.00-4.00 ABSOLUTE MONOCYTES (test code = 1068) 0.54 K/UL 0.20-1.00 ABSOLUTE EOSINOPHILS (test code = 1040) 0.10 K/UL 0.00-0.50 ABSOLUTE BASOPHILS (test code = 1069) 0.06 K/UL 0.00-0.20 ABS IMMATURE GRANULOCYTES (test code = 1020) 0.04 K/UL 0.00-0.10 ABS NUCLEATED RBCS (test code = 26359) 0.00 K/UL 0.00-0.11 UNLESS OTHER WOLFE INDICATED, ALL TESTING [facility]FORMED [facility] [address] [place] [address] BATCH MIXING TRUCK DRIVER: NIRMALA MALDONADO M.D. [place] NUMBER [id number] [facility] [place]. [id number] VAGINAL PATHOGENS DNA [id number] 00:00:00* Test Item Value Reference Range Interpretation Comme nts OLGA LIDIA SPECIES (test code = ) NEGATIVE G. VAGINALIS (test code = 13162) NEGATIVE T. VAGINALIS (test code = ) NEGATIVE VAGINAL PATHOGENS DNA [id number] 00:00:00* Test Item Value Reference Range Interpretation Comme nts OLGA LIDIA SPECIES (test code = ) NEGATIVE G. VAGINALIS (test code = 57193) NEGATIVE T. VAGINALIS (test code = ) NEGATIVE GC AND CHLAMYDIA AMPLIFIED, [id number] 00:00:00* Test Item Value Reference Range Interpretation Comme nts GONORRHEA, TMA (test code = 68402) NEGATIVE CHLAMYDIA, TMA (test code = 34136) NEGATIVE HIV AB/AG COMBO RFLX [id number] 00:00:00* Test Item Value Reference Range Interpretation Comme nts HIV 1/2 4TH GEN, RFLX CONF ( test code = 3514) NON-REACTIVE GC AND CHLAMYDIA AMPLIFIED, [id number] 00:00:00* Test Item Value Reference Range Interpretation Comme nts GONORRHEA, TMA (test code = 23052) NEGATIVE CHLAMYDIA, TMA (test code = 50297) NEGATIVE HIV AB/AG COMBO RFLX [id number] 00:00:00* Test Item Value Reference Range Interpretation Comme nts HIV 1/2 4TH GEN, RFLX CONF ( test code = 3514) NON-REACTIVE PAP TEST, THINPREP, [id number] 00:00:00* Test Item Value Reference Range Interpretation Comme nts SOURCE: (test code = 8001) Cervical/Endocervical SLIDES: (test code = 8011) 1 LMP: (test code = 8021) 04/18/2021 SPECIMEN ADEQUACY: (test code = 71506) (NOTE) INTERPRETATION: (test code = 82684) NILM/NO EPITH. ABNORMALITY;SEE BELOW MACHINERY ERECTOR: (test code = 8101) BANDAR Cuevas(ASCP) LOCATION: (test code = 60260) (NOTE) CPT: (test code = 8140) (NOTE) PAP TEST, THINPREP, [id number] 00:00:00* Test Item Value Reference Range Interpretation Comme nts SOURCE: (test code = 8001) Cervical/Endocervical SLIDES: (test code = 8011) 1 LMP: (test code = 8021) 04/18/2021 SPECIMEN ADEQUACY: (test code = 35120) (NOTE) INTERPRETATION: (test code = 21914) NILM/NO EPITH. ABNORMALITY;SEE BELOW MACHINERY ERECTOR: (test code = 8101) BANDAR Cuevas(ASCP) LOCATION: (test code = 25989) (NOTE) CPT: (test code = 8140) (NOTE) ACUTE HEPATITIS [id number] 00:00:00* Test Item Value Reference Range Interpretation Comme nts HEPATITIS A IgM (test code = 92543) NON-REACTIVE HEPATITIS B CORE IgM (test c ode = 4644) NON-REACTIVE HEPATITIS B SURF AG (test co de = 2739) NON-REACTIVE HEPATITIS C ANTIBODY (test c ode = 4675) NON-REACTIVE INTERPRETATION HEPATITIS A: (test code = 2552) (NOTE) INTERPRETATION HEPATITIS B: (test code = 49867) (NOTE) INTERPRETATION HEPATITIS C: (test code = 44785) (NOTE) ACUTE HEPATITIS [id number] 00:00:00* Test Item Value Reference Range Interpretation Comme nts HEPATITIS A IgM (test code = 13487) NON-REACTIVE HEPATITIS B CORE IgM (test c ode = 4644) NON-REACTIVE HEPATITIS B SURF AG (test co de = 2739) NON-REACTIVE HEPATITIS C ANTIBODY (test c ode = 4675) NON-REACTIVE INTERPRETATION HEPATITIS A: (test code = 2552) (NOTE) INTERPRETATION HEPATITIS B: (test code = 50399) (NOTE) INTERPRETATION HEPATITIS C: (test code = 55034) (NOTE) [id number] 00:00:00* Test Item Value Reference Range Interpretation Comme nts RPR RESULT (test code = 3501) NON-REACTIVE RPR TITER (test code = 3500) NOT INDIC. TITER [id number] 00:00:00* Test Item Value Reference Range Interpretation Comme nts RPR RESULT (test code = 3501) NON-REACTIVE RPR TITER (test code = 3500) NOT INDIC. TITER [id number] 00:00:00* Test Item Value Reference Range Interpretation Comme nts RPR RESULT (test code = 3501) NON-REACTIVE RPR TITER (test code = 3500) NOT INDIC. TITER HCG, [id number] 00:00:00* Test Item Value Reference Range Interpretation Comme nts HCG, QUANTITATIVE (test code = 2506) <5 MIU/ML HCG, [id number] 00:00:00* Test Item Value Reference Range Interpretation Comme nts HCG, QUANTITATIVE (test code = 2506) <5 MIU/ML HCG, [id number] 00:00:00* Test Item Value Reference Range Interpretation Comme nts HCG, QUANTITATIVE (test code = 2506) <5 MIU/ML VAGINAL PATHOGENS DNA [id number] 00:00:00* Test Item Value Reference Range Interpretation Comme nts OLGA LIDIA SPECIES (test code = 45427) NEGATIVE G. VAGINALIS (test code = 91543) POSITIVE T. VAGINALIS (test code = 06229) NEGATIVE VAGINAL PATHOGENS DNA [id number] 00:00:00* Test Item Value Reference Range Interpretation Comme nts OLGA LIDIA SPECIES (test code = 76121) NEGATIVE G. VAGINALIS (test code = 21526) POSITIVE T. VAGINALIS (test code = 01251) NEGATIVE GC, AMPLIFIED, [id number] 00:00:00* Test Item Value Reference Range Interpretation Comme nts GONORRHEA, NAAT (test code = 74009) NEGATIVE CHLAMYDIA, AMPLIFIED, [id number] 00:00:00* Test Item Value Reference Range Interpretation Comme nts CHLAMYDIA, NAAT (test code = 77191) NEGATIVE CHLAMYDIA, AMPLIFIED, [id number] 00:00:00* Test Item Value Reference Range Interpretation Comme nts CHLAMYDIA, NAAT (test code = 25649) NEGATIVE GC, AMPLIFIED, [id number] 00:00:00* Test Item Value Reference Range Interpretation Comme nts GONORRHEA, NAAT (test code = 98372) NEGATIVE CULTURE, URINE [ADDED]2020-09-14 00:00:00* Test Item Value Reference Range Interpretation Comme nts CULTURE, URINE (test code = 26133) SPECIMEN NUMBER: [id number] CULTURE, URINE [ADDED]2020-09-14 00:00:00* Test Item Value Reference Range Interpretation Comme nts CULTURE, URINE (test code = 55749) SPECIMEN NUMBER: [id number] HEPATITIS PROFILE (A,B,C)2020-09-13 00:00:00* Test Item Value Reference Range Interpretation Comme nts HEPATITIS A TOTAL AB (test c ode = 2725) REACTIVE HEPATITIS B SURF AG (test co de = 2739) NON-REACTIVE HEP B CORE TOTAL AB (test co de = 2729) NON-REACTIVE HEPATITIS B SURFACE AB (test code = 2737) NON-REACTIVE HEPATITIS C ANTIBODY (test c ode = 4675) NON-REACTIVE INTERPRETATION HEPATITIS A: (test code = 2552) (NOTE) INTERPRETATION HEPATITIS B: (test code = 67247) (NOTE) INTERPRETATION HEPATITIS C: (test code = 10568) (NOTE) HEPATITIS PROFILE (A,B,C)2020-09-13 00:00:00* Test Item Value Reference Range Interpretation Comme nts HEPATITIS A TOTAL AB (test c ode = 2725) REACTIVE HEPATITIS B SURF AG (test co de = 2739) NON-REACTIVE HEP B CORE TOTAL AB (test co de = 2729) NON-REACTIVE HEPATITIS B SURFACE AB (test code = 2737) NON-REACTIVE HEPATITIS C ANTIBODY (test c ode = 4675) NON-REACTIVE INTERPRETATION HEPATITIS A: (test code = 2552) (NOTE) INTERPRETATION HEPATITIS B: (test code = 06729) (NOTE) INTERPRETATION HEPATITIS C: (test code = 87116) (NOTE) HEPATITIS A IgM [REFLEX]2020-09-13 00:00:00* Test Item Value Reference Range Interpretation Comme nts HEPATITIS A IgM (test code = 2728) NON-REACTIVE HIV AB/AG COMBO RFLX [id number] 00:00:00* Test Item Value Reference Range Interpretation Comme nts HIV 1/2 4TH GEN, RFLX CONF ( test code = 3514) NON-REACTIVE HIV AB/AG COMBO RFLX [id number] 00:00:00* Test Item Value Reference Range Interpretation Comme nts HIV 1/2 4TH GEN, RFLX CONF ( test code = 3514) NON-REACTIVE [id number] 00:00:00* Test Item Value Reference Range Interpretation Comme nts RPR RESULT (test code = 3501) NON-REACTIVE RPR TITER (test code = 3500) NOT INDIC. TITER [id number] 00:00:00* Test Item Value Reference Range Interpretation Comme nts RPR RESULT (test code = 3501) NON-REACTIVE RPR TITER (test code = 3500) NOT INDIC. TITER [id number] 00:00:00* Test Item Value Reference Range Interpretation Comme nts RPR RESULT (test code = 3501) NON-REACTIVE RPR TITER (test code = 3500) NOT INDIC. TITER HCG, [id number] 00:00:00* Test Item Value Reference Range Interpretation Comme nts HCG, QUANTITATIVE (test code = 2506) <5 MIU/ML HCG, [id number] 00:00:00* Test Item Value Reference Range Interpretation Comme nts HCG, QUANTITATIVE (test code = 2506) <5 MIU/ML HCG, [id number] 00:00:00* Test Item Value Reference Range Interpretation Comme nts HCG, QUANTITATIVE (test code = 2506) <5 MIU/ML [id number] 00:00:00* Test Item Value Reference Range Interpretation Comme nts RPR RESULT (test code = 3501) NON-REACTIVE RPR TITER (test code = 3500) NOT INDIC. TITER GC AND CHLAMYDIA AMPLIFIED, [id number] 00:00:00* Test Item Value Reference Range Interpretation Comme nts GONORRHEA, TMA (test code = 08424) NEGATIVE CHLAMYDIA, TMA (test code = 80543) NEGATIVE VAGINAL PATHOGENS DNA [id number] 00:00:00* Test Item Value Reference Range Interpretation Comme nts OLGA LIDIA SPECIES (test code = 32493) NEGATIVE G. VAGINALIS (test code = 43992) POSITIVE T. VAGINALIS (test code = 62594) NEGATIVE GC AND CHLAMYDIA AMPLIFIED, [id number] 00:00:00* Test Item Value Reference Range Interpretation Comme nts GONORRHEA, TMA (test code = 72963) NEGATIVE CHLAMYDIA, TMA (test code = 81789) NEGATIVE [id number] 00:00:00* Test Item Value Reference Range Interpretation Comme nts RPR RESULT (test code = 3501) NON-REACTIVE RPR TITER (test code = 3500) NOT INDIC. TITER VAGINAL PATHOGENS DNA [id number] 00:00:00* Test Item Value Reference Range Interpretation Comme nts OLGA LIDIA SPECIES (test code = 68111) NEGATIVE G. VAGINALIS (test code = 73352) POSITIVE T. VAGINALIS (test code = 59202) NEGATIVE [id number] 00:00:00* Test Item Value Reference Range Interpretation Comme nts RPR RESULT (test code = 3501) NON-REACTIVE RPR TITER (test code = 3500) NOT INDIC. TITER HIV AB/AG COMBO RFLX [id number] 00:00:00* Test Item Value Reference Range Interpretation Comme nts HIV 1/2 4TH GEN, RFLX CONF ( test code = 3514) NON-REACTIVE PAP TEST, THINPREP, [id number] 00:00:00* Test Item Value Reference Range Interpretation Comme nts SOURCE: (test code = 8001) Vaginal SLIDES: (test code = 8011) 1 LMP: (test code = 8021) 02/16/2019 SPECIMEN ADEQUACY: (test code = 60887) (NOTE) INTERPRETATION: (test code = 32901) NILM/NO EPITH. ABNORMALITY;SEE BELOW MACHINERY ERECTOR: (test code = 8101) BANDAR Enciso(ASCP) LOCATION: (test code = 04709) (NOTE) CPT: (test code = 8140) (NOTE) PAP TEST, THINPREP, [id number] 00:00:00* Test Item Value Reference Range Interpretation Comme nts SOURCE: (test code = 8001) Vaginal SLIDES: (test code = 8011) 1 LMP: (test code = 8021) 02/16/2019 SPECIMEN ADEQUACY: (test code = 06026) (NOTE) INTERPRETATION: (test code = 63293) NILM/NO EPITH. ABNORMALITY;SEE BELOW MACHINERY ERECTOR: (test code = 8101) Nicolas AllenCT(ASCP) LOCATION: (test code = 02950) (NOTE) CPT: (test code = 8140) (NOTE) HIV AB/AG COMBO RFLX [id number] 00:00:00* Test Item Value Reference Range Interpretation Comme nts HIV 1/2 4TH GEN, RFLX CONF ( test code = 3514) NON-REACTIVE VAGINAL PATHOGENS DNA [id number] 00:00:00* Test Item Value Reference Range Interpretation Comme nts OLGA LIDIA SPECIES (test code = 88281) NEGATIVE G. VAGINALIS (test code = 48203) POSITIVE T. VAGINALIS (test code = 56047) NEGATIVE VAGINAL PATHOGENS DNA [id number] 00:00:00* Test Item Value Reference Range Interpretation Comme nts OLGA LIDIA SPECIES (test code = 50793) NEGATIVE G. VAGINALIS (test code = 51554) POSITIVE T. VAGINALIS (test code = 36043) NEGATIVE VAGINAL PATHOGENS DNA [id number] 00:00:00* Test Item Value Reference Range Interpretation Comme nts OLGA LIDIA SPECIES (test code = 36387) NEGATIVE G. VAGINALIS (test code = 29214) POSITIVE T. VAGINALIS (test code = 86163) NEGATIVE VAGINAL PATHOGENS DNA [id number] 00:00:00* Test Item Value Reference Range Interpretation Comme nts OLGA LIDIA SPECIES (test code = 65736) NEGATIVE G. VAGINALIS (test code = 85419) POSITIVE T. VAGINALIS (test code = 05663) NEGATIVE CHLAMYDIA, AMPLIFIED, [id number] 00:00:00* Test Item Value Reference Range Interpretation Comme nts CHLAMYDIA, AMPLIFIED (test c ode = 89503) NEGATIVE CHLAMYDIA, AMPLIFIED, [id number] 00:00:00* Test Item Value Reference Range Interpretation Comme nts CHLAMYDIA, AMPLIFIED (test c ode = 61620) NEGATIVE GC, AMPLIFIED, [id number] 00:00:00* Test Item Value Reference Range Interpretation Comme nts GONORRHEA, AMPLIFIED (test c ode = 50942) NEGATIVE GC, AMPLIFIED, [id number] 00:00:00* Test Item Value Reference Range Interpretation Comme nts GONORRHEA, AMPLIFIED (test c ode = 38404) NEGATIVE CHLAMYDIA, AMPLIFIED, [id number] 00:00:00* Test Item Value Reference Range Interpretation Comme nts CHLAMYDIA, AMPLIFIED (test c ode = 72240) NEGATIVE CHLAMYDIA, AMPLIFIED, [id number] 00:00:00* Test Item Value Reference Range Interpretation Comme nts CHLAMYDIA, AMPLIFIED (test c ode = 95803) NEGATIVE GC, AMPLIFIED, [id number] 00:00:00* Test Item Value Reference Range Interpretation Comme nts GONORRHEA, AMPLIFIED (test c ode = 82605) POSITIVE GC, AMPLIFIED, [id number] 00:00:00* Test Item Value Reference Range Interpretation Comme nts GONORRHEA, AMPLIFIED (test c ode = 48178) POSITIVE [id number] 00:00:00* Test Item Value Reference Range Interpretation Comme nts RPR RESULT (test code = 3501) NON-REACTIVE RPR TITER (test code = 3500) NOT INDIC. TITER [id number] 00:00:00* Test Item Value Reference Range Interpretation Comme nts RPR RESULT (test code = 3501) NON-REACTIVE RPR TITER (test code = 3500) NOT INDIC. TITER HEPATITIS PROFILE (A,B,C)2015-04-18 00:00:00* Test Item Value Reference Range Interpretation Comme nts HEPATITIS A TOTAL AB (test c ode = 2725) REACTIVE HEPATITIS B SURF AG (test co de = 2739) NON-REACTIVE HEP B CORE TOTAL AB (test co de = 2729) NON-REACTIVE HEPATITIS B SURFACE AB (test code = 2737) NON-REACTIVE HEPATITIS C ANTIBODY (test c ode = 4675) NON-REACTIVE INTERPRETATION HEPATITIS A: (test code = 2552) (NOTE) INTERPRETATION HEPATITIS B: (test code = 08971) (NOTE) INTERPRETATION HEPATITIS C: (test code = 56725) (NOTE) HEPATITIS PROFILE (A,B,C)2015-04-18 00:00:00* Test Item Value Reference Range Interpretation Comme nts HEPATITIS A TOTAL AB (test c ode = 2725) REACTIVE HEPATITIS B SURF AG (test co de = 2739) NON-REACTIVE HEP B CORE TOTAL AB (test co de = 2729) NON-REACTIVE HEPATITIS B SURFACE AB (test code = 2737) NON-REACTIVE HEPATITIS C ANTIBODY (test c ode = 4675) NON-REACTIVE INTERPRETATION HEPATITIS A: (test code = 2552) (NOTE) INTERPRETATION HEPATITIS B: (test code = 16595) (NOTE) INTERPRETATION HEPATITIS C: (test code = 49091) (NOTE) HEPATITIS A IgM [REFLEX]2015-04-18 00:00:00* Test Item Value Reference Range Interpretation Comme nts HEPATITIS A IgM (test code = 2728) NON-REACTIVE VAGINAL PATHOGENS DNA [id number] 00:00:00* Test Item Value Reference Range Interpretation Comme nts OLGA LIDIA SPECIES (test code = 10671) NEGATIVE G. VAGINALIS (test code = 74941) POSITIVE T. VAGINALIS (test code = ) NEGATIVE VAGINAL PATHOGENS DNA [id number] 00:00:00* Test Item Value Reference Range Interpretation Comme nts OLGA LIDIA SPECIES (test code = ) NEGATIVE G. VAGINALIS (test code = ) POSITIVE T. VAGINALIS (test code = ) NEGATIVE HIV AB/AG COMBO RFLX [id number] 00:00:00* Test Item Value Reference Range Interpretation Comme nts HIV AB/AG COMBO RFLX CONF (t est code = 3514) NON-REACTIVE HIV AB/AG COMBO RFLX [id number] 00:00:00* Test Item Value Reference Range Interpretation Comme nts HIV AB/AG COMBO RFLX CONF (t est code = 3514) NON-REACTIVE [id number] 00:00:00* Test Item Value Reference Range Interpretation Comme nts RPR RESULT (test code = 3501) NON-REACTIVE RPR TITER (test code = 3500) NOT INDIC. TITER
[2023-09-12 19:19] LABS: Specific Gravity 1.007 (1.005-1.030)
[2023-09-12 19:21] LABS: Specific Gravity 1.007 (1.005-1.030); Sqamous Epithelial <5 /HPF (None Seen); Urine Bacteria <20 /HPF (<20); Urine Bilirubin NEGATIVE (Negative); Urine Blood 1+ (Negative); Urine Clarity Clear (Clear); Urine Color Colorless (Yellow); Urine Culture Reflex Order NOT NEEDED; Urine Glucose NEGATIVE (Negative); Urine Ketones NEGATIVE (Negative); Urine Microscopic Reflex YN ORDER UMIC; Urine Mucus Slight /HPF (None Seen); Urine Nitrite NEGATIVE (Negative); Urine Protein NEGATIVE (Negative); Urine RBC <5 /HPF (None Seen); Urine Urobilinogen Normal (Normal); Urine WBC <5 /HPF (<5); Urine pH 5.5 (5.0-7.0)
[2023-09-12 19:23] LABS: Absolute Basophils 0.1 K/uL (0-0.5); Absolute Eosinophils 0.1 K/uL (0-0.5); Absolute Monocytes 0.8 K/uL (0.1-1.3); Absolute Neutrophil 6.4 K/uL (1.8-8.0); Basophils % 0.5 % (0-1.3); Eosinophils % 1.3 % (0-4.4); Hematocrit 38.2 % (36.0-45.0); Hemoglobin 12.9 g/dL (12.0-15.0); MCHC 33.8 g/dL (32.0-36.0); MCV 85.7 fL (80-100); MPV 9.4 fL (7.6-11.3); Monocytes % 7.3 % (3.3-12.3); Neutrophils % 61.9 % (41.7-73.7); Platelets 287 thou/uL (152-406); RBC Red Blood Cell Count 4.46 M/uL (3.86-4.86); Red Cell Distribution Width 13.8 % (12.1-15.2)
[2023-09-12 19:51] LABS: Anion Gap 7.4 mEq/L (5.0-15.0); Potassium 3.4 mEq/L (3.5-5.1)
--- NOTE | 2023-09-12 20:02 | RAD REPORT ---
EXAM DESCRIPTION: US - Transvaginal OB - 09/12/2023 7:47 pm CLINICAL HISTORY: VAGINAL BLEEDING COMPARISON: <Comparisons> FINDINGS: A single gestational sac is seen within the uterus. The shape of the sac is within normal limits for gestational age. Within the sac is a small yolk sac. No embryo yet identified. The maternal adnexa and right ovary are within normal limits. Left ovary has been removed previously. Normal Doppler blood flow was demonstrated to the right ovary. IMPRESSION: Findings are compatible with early IUP.
[2023-09-12] MEDS ORDERED: POTASSIUM 25 MEQ EFFERV TAB ONE (20:50)
--- NOTE | 2023-09-12 20:50 | EDPHYS ---
Physician Documentation [facility] Name: Roxanna Avelar Age: 28 yrs Sex: Female : 1995 Arrival Date: 09/12/2023 Time: 18:36 Bed 11 Private MD: ED Physician Hi Herrera HPI: 09/11 19:00 This 28 yrs old Female presents to ER via Ambulatory with complaints of cp Vaginal Bleeding, + Preg <12wks. 19:00 The patient presents to the emergency department with vaginal bleeding, that is light. cp The estimated gestational age is 6 weeks. 19:00 course: care: none, Leakage of Fluid: none appreciated, Ultrasound: cp the patient has not had an ultrasound. Previous pregnancies: in previous pregnancies patient has had ectopic . Associated signs and symptoms: Pertinent negatives: abdominal pain, dysuria, fever. CLEARING HAND: 18:54 LMP 07/25/2023, unknown as6 19:00 2, Full Term 0, 1, Living 0, LMP 07/25/2023, Verified, EDC cp 04/30/2024, Gestational age from LMP: 7 weeks 1 day Historical: - Allergies: 18:54 No Known Allergies; as6 - PMHx: 18:54 None; as6 - PSHx: 18:54 ectopic; breast; as6 - Immunization history:: Adult Immunizations up to date. - Infectious Disease History:: Denies. - Social history:: Smoking status: Patient denies any tobacco usage or history of. ROS: 19:05 Constitutional: Negative for body aches, chills, fever, poor PO intake, cp 19:05 Eyes: Negative for injury, pain, redness, and discharge, cp 19:05 ENT: Negative for drainage from ear(s), ear pain, sore throat, difficulty swallowing, difficulty handling secretions, 19:05 Respiratory: Negative for cough, shortness of breath, wheezing, 19:05 Abdomen/GI: Negative for abdominal pain, nausea and vomiting, constipation, 19:05 : Positive for vaginal bleeding, Negative for urinary symptoms, pelvic pain, 19:05 Neuro: Negative for altered mental status, dizziness, headache, weakness, 19:05 All other systems are negative, Exam: 19:10 Constitutional: The patient appears in no acute distress, alert, awake, non-toxic, well cp developed, well nourished, 19:10 Head/Face: Normocephalic, atraumatic. cp 19:10 Eyes: Periorbital structures: appear normal, Conjunctiva: normal, no exudate, no injection, Sclera: no appreciated abnormality, Lids and lashes: appear normal, bilaterally, 19:10 ENT: External ear(s): are unremarkable, Nose: is normal, Mouth: Lips: moist, Oral mucosa: moist, Posterior pharynx: Airway: no evidence of obstruction, patent, 19:10 Chest/axilla: Inspection: normal, 19:10 Cardiovascular: Rate: normal, Rhythm: regular, 19:10 Respiratory: the patient does not display signs of respiratory distress, Respirations: normal, no use of accessory muscles, no retractions, labored breathing, is not present, Breath sounds: are clear throughout, no decreased breath sounds, no stridor, no wheezing, 19:10 Abdomen/GI: Inspection: abdomen appears normal, Palpation: abdomen is soft and non-tender, in all quadrants, 19:10 Back: pain, is absent, ROM is normal, 19:10 Neuro: Orientation: to person, place \T\ time. Mentation: is normal, Motor: moves all fours, strength is normal, Sensation: is normal, Vital Signs: 18:50 BP 146 / 84; Pulse 75; Resp 18 S; Temp 97.9(TE); Pulse Ox 100% on R/A; Weight 75.3 kg as6 (R); Height 5 ft. 2 in. (R); Pain 0/10; 20:58 BP 140 / 86; Pulse 89; Resp 18; Pulse Ox 100% on R/A; mb9 18:50 Body Mass Index 30.36 (75.30 kg, 157.48 cm) as6 18:50 Pain Scale: Adult as6 MDM: 19:01 Patient medically screened. cp 19:15 Differential diagnosis: ectopic , uti, std. cp 20:50 Data reviewed: vital signs, nurses notes, lab test result(s), radiologic studies, cp ultrasound. 20:50 Counseling: I had a detailed discussion with the patient and/or guardian regarding the cp historical points, exam findings, and any diagnostic results supporting the discharge/admit diagnosis, lab results, radiology results, the need for outpatient follow up, an OB/Gyne specialist, to return to the emergency department if symptoms worsen or persist or if there are any questions or concerns that arise at home. ED course: VSS. Discussed results of today's test. Recommend recheck beta-hcg in 48 hrs and f/u US 1 week with OB. 09/11 18:52 Order name: Abo/rh Typing; Complete Time: 20:00 09/11 20:42 Interpretation: Reviewed. 09/11 18:52 Order name: Basic Metabolic Panel; Complete Time: 20:00 09/11 20:00 Interpretation: Normal except: NA 134; K 3.4. 09/11 18:52 Order name: CBC with Diff; Complete Time: 20:00 09/11 20:42 Interpretation: Reviewed. 09/11 18:52 Order name: Test, Urine; Complete Time: 20:00 09/11 20:00 Interpretation: Reviewed. 09/11 18:52 Order name: Quantitative Hcg; Complete Time: 20:00 09/11 20:00 Interpretation: Reviewed. 09/11 18:52 Order name: Urinalysis w/ reflexes; Complete Time: 20:00 09/11 20:42 Interpretation: Normal except: UBLD 1+. 09/11 18:52 Order name: US Transvaginal Ob; Complete Time: 20:41 09/11 20:41 Interpretation: Report reviewed. 09/11 18:52 Order name: IV Saline Lock; Complete Time: 19:06 09/11 18:52 Order name: Labs collected and sent; Complete Time: 19:06 09/11 18:52 Order name: NPO; Complete Time: 19:06 cp Administered Medications: 20:50 Drug: Potassium PO Effervescent Tablet 25 mEq PO once; dissolve in 4 ounces of water or mb9 juice Route: PO; 20:58 Follow up: Response: No adverse reaction mb9 Disposition Summary: 09/12/23 20:50 Discharge Ordered Notes: Location: Home cp Problem: new cp Symptoms: have improved cp Condition: Stable cp Diagnosis - Threatened cp Followup: cp - With: Private Physician - When: 48 Hours - Reason: Repeat EKG Discharge Instructions: - Discharge Summary Sheet cp - Care cp - Threatened Miscarriage cp - Vaginal Bleeding During , First Trimester cp - First Trimester of cp Forms: - Medication Reconciliation Form cp - Thank You Letter cp - Antibiotic Education cp - Prescription Opioid Use cp - Patient Portal Instructions cp - Leadership Thank You Letter cp Signatures: Dispatcher [employer] Bhavin Mcdaniel PA PA cp Ryan Thompson, RN RN as6 Hoa Murray RN RN mb9 Corrections: (The following items were deleted from the chart) 09/12 14:19 09/11 19:00 2, Full Term 0, 1, LMP 07/2023, Verified, EDC cp 04/12/2024, Gestational age from LMP: 9 weeks 5 days cp
--- NOTE | 2023-09-12 20:50 | ER ---
Nurse's Notes [facility] Name: Roxanna Avelar Age: 28 yrs Sex: Female : 1995 Arrival Date: 09/12/2023 Time: 18:36 Bed 11 Private MD: Diagnosis: Threatened Presentation: 09/11 18:50 Chief complaint: Patient states: vaginal bleeding with bright red blood that started as6 today. pt states she is approx 6 weeks . Coronavirus screen: At this time, the client does not indicate any symptoms associated with coronavirus-19. Ebola Screen: No symptoms or risks identified at this time. Initial Sepsis Screen: Does the patient meet any 2 criteria? No. Patient's initial sepsis screen is negative. Does the patient have a suspected source of infection? No. Patient's initial sepsis screen is negative. Risk Assessment: Do you want to hurt yourself or someone else? Patient reports no desire to harm self or others. Onset of symptoms was September 12, 2023. 18:50 Acuity: ANA 3 as6 18:50 Method Of Arrival: Ambulatory as6 Triage Assessment: 19:06 General: Appears in no apparent distress. Behavior is calm, cooperative. Pain: Denies as6 pain. : Reports vaginal bleeding that is bright red. 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 - Infectious Disease History:: Denies. - Social history:: Smoking status: Patient denies any tobacco usage or history of. Screenin:19 [facility] ED Fall Risk Assessment (Adult) History of falling in the last 3 months, mb9 including since admission No falls in past 3 months (0 pts) Confusion or Disorientation No (0 pts) Intoxicated or Sedated No (0 pts) Impaired Gait No (0 pts) Mobility Assist Device Used No (0 pt) Altered Elimination No (0 pt) Score/Fall Risk Level 0 - 2 = Low Risk Oriented to surroundings, Maintained a safe environment, Educated pt \T\ family on fall prevention, incl call for assistance when getting out of bed. Abuse screen: Denies threats or abuse. Nutritional screening: No deficits noted. Tuberculosis screening: No symptoms or risk factors identified. Assessment: 20:18 Reassessment: pt put into ER room. mb9 20:23 General: Appears in no apparent distress. Behavior is calm, cooperative. Pain: Denies mb9 pain. Neuro: Arredondo Agitation-Sedation Scale (RASS): 0 - Alert and Calm Level of Consciousness is awake, alert, obeys commands, Oriented to person, place, time, situation, Appropriate for age. Cardiovascular: Patient's skin is warm and dry. Respiratory: Airway is patent Respiratory effort is even, unlabored, Respiratory pattern is regular, symmetrical. GI: Abdomen is round non-distended. : Reports vaginal bleeding that is bright red, light flow. EENT: No signs and/or symptoms were reported regarding the EENT system. Derm: Skin is pink, warm \T\ dry. Musculoskeletal: Range of motion: intact in all extremities. Vital Signs: 18:50 BP 146 / 84; Pulse 75; Resp 18 S; Temp 97.9(TE); Pulse Ox 100% on R/A; Weight 75.3 kg as6 (R); Height 5 ft. 2 in. (R); Pain 0/10; 20:58 BP 140 / 86; Pulse 89; Resp 18; Pulse Ox 100% on R/A; mb9 18:50 Body Mass Index 30.36 (75.30 kg, 157.48 cm) as6 18:50 Pain Scale: Adult as6 ED Course: 18:39 Patient arrived in ED. im 18:41 Bhavin Chan PA is PHCP. cp 18:41 Hi Herrera MD is Attending Physician. cp 18:54 Triage completed. as6 18:55 Arm band placed on. as6 19:06 Inserted saline lock: 20 gauge in right antecubital area, using aseptic technique. as6 Blood collected. 19:06 Abo/rh Typing Sent. as6 19:06 Basic Metabolic Panel Sent. as6 19:06 CBC with Diff Sent. as6 19:07 Test, Urine Sent. as6 19:07 Quantitative Hcg Sent. as6 19:07 Urinalysis w/ reflexes Sent. as6 19:09 Radiology exam delayed due to test not completed at this time. ml6 19:48 US Transvaginal Ob In Process Unspecified. EDMS 20:18 Hoa Murray, RN is Primary Nurse. mb9 20:19 No provider procedures requiring assistance completed. mb9 20:19 Patient did not have IV access during this emergency room visit. mb9 20:20 Placed in gown. Bed in low position. Call light in reach. Side rails up X 1. Provided mb9 Education on: press call light if needing anything. Client placed on continuous cardiac and pulse oximetry monitoring. NIBP monitoring applied. Administered Medications: 20:50 Drug: Potassium PO Effervescent Tablet 25 mEq PO once; dissolve in 4 ounces of water or mb9 juice Route: PO; 20:58 Follow up: Response: No adverse reaction mb9 Medication: 20:20 VIS not applicable for this client. mb9 Outcome: 20:50 Discharge ordered by . alvaro 20:59 Discharged to home ambulatory, with family, mb9 20:59 Condition: stable 20:59 Discharge instructions given to patient, family, Instructed on discharge instructions, follow up and referral plans. Demonstrated understanding of instructions, follow-up care, 20:59 Patient left the ED. mb9 Signatures: Dispatcher [employer] EDMS Bhavin Chan PA PA cp Slawson, Ashby, RN RN as6 Hoa Murray, RN RN mb9 Alyssa Zhou Megan ml6
[2023-09-13 03:07] VITALS: BP 140/86; TEMP 97.9; O2SAT 100
== END 2023-09-12 20:59 | disposition home or self-care (01) ==
LOC: ER 18:36
DX: O20.0 Threatened abortion (principal)
CPT/HCPCS: 36415; 76817; 80048; 81001; 81025; 84702; 85025; 86900; 86901; 99284

== ENCOUNTER 2023-09-13 09:49 | Emergency (ER) | payer OTHER ==
--- OUTSIDE RECORDS SUMMARY | 2023-09-13 09:53 | XMS REPORT | Continuity of Care Document ---
Author Name Unknown Address [address] [facility] [place] [address] [facility] thconnect Address [address] [facility] [address] [place] [address] Care Team Providers Care [employer] Name Role Phone PCP, PATIENT DOES NOT HAVE A Primary Care Physic violet Unavailable Yuridia Thakkar Attending Clinician Unavailable EMILY DAVIS Attending Clinician Unavail able GC_GCBZW_Alisaa_S Attending Clinician Unavaila FERMÍN Small Attending Clinician Unavailable Fermín Crow Attending Clinician Sanjay Nash DO Attending Clinician [phone] Darian Moore MD Attending Clinician [phone] JE_GCBZW_Magdy_S Admitting Clinician Unavailmaryann turner Payers Payer Name Policy Type Policy Number Effective Date Expirati on Date Source Problems Condition Name Condition Details Condition Category Status Onset Date Resolution Date Last Treatment Date Treating Clinician Comments Source No known active problems No known active problems Disease [facility] Allergies, Adverse Reactions, Alerts Allergy Name Allergy Type Status Severity Reaction(s) Onset Date Inactive Date Treating Clinician Comments Source Unable to Assess DA Active [facility] 2020-06 [facility]:00[facility] Drug Class Active [facility] Social History Social Habit Start Date Stop Date Quantity Comments Source Sex Assigned At [facility] Exposure to SARS-CoV-2 (event) Not sure [facility] Tobacco use and exposure 2020-04-30 00:00:00 2020-04-30 00:00:00 Never used [facility] Smoking Status Start Date Stop Date Source Never smoker [facility] Unknown if ever smoked Un[facility] Medications Ordered Medication Name Filled Medication Name Start Date Stop Date Current Medication? Ordering Clinician Indication Dosage Frequency Signature (SIG) Comments Components Source TAKE 1 TABLET BY MOUTH DAILY 02-09 00:00: 00 No Augmentin 875 mg-125 mg tablet 02-21 00:00: 00 No 1mg metronidazo le 500 mg tablet 01-14 00:00: 00 No 1mg fluconazole 150 mg tablet 01-09 00:00: 00 No 1mg amoxicillin 500 mg capsule 09-17 00:00: 00 No 1mg predniSONE 20 mg tablet 02-28 00:00: 00 Yes [id number] 60mg Take 3 tablets by mouth every morning. [facility] cyclobenzap rine 10 mg tablet 02-28 00:00: 00 Yes [id number] 10mg Take 1 tablet by mouth 3 (three) times daily. [facility] Diflucan 150 mg tablet 12-20 00:00: 00 No 1mg Diflucan 150 mg tablet 08-19 00:00: 00 No 1mg Flagyl 500 mg tablet 08-19 00:00: 00 No 1mg Flagyl 500 mg tablet 2018-06 00:00: 00 No 1mg Flagyl 500 mg [...] Vital Name Observation Time Observation Value Comments Saira cook Systolic blood pressure 2020-04-30 20:00:00 135 mm[Hg] [facility] Diastolic blood pressure 2020-04-30 20:00:00 84 mm[Hg] [facility] Heart rate 2020-04-30 19:58:00 97 /min [facility] Body height 2020-04-30 19:58:00 157.5 cm [facility] Body weight 2020-04-30 19:58:00 68.04 kg [facility] BMI 2020-04-30 19:58:00 27.44 kg/m2 [facility] Systolic blood pressure 2020-03-01 00:00:00 124 mm[Hg] [facility] Diastolic blood pressure 2020-03-01 00:00:00 69 mm[Hg] [facility] Heart rate 2020-03-01 00:00:00 80 /min [facility] Respiratory rate 2020-03-01 00:00:00 16 /min [facility] Oxygen saturation in Arterial blood by Pulse oximetry 2020-03-01 00:00:00 100 /min [facility] Body temperature 2020-02-29 22:47:00 37.06 Justine [facility] Body weight 2020-02-29 22:47:00 68.04 kg [facility] BMI 2020-02-29 22:47:00 27.44 kg/m2 [facility] BP Systolic 2022-02-25 09:12:00 137 mm[Hg] BP [...] /min Respiratory Rate 2019-07-12 16:56:00 17.00 /min Procedures Procedure Date / Time Performed Performing Clinician Source UNILATERAL VENOUS DUPLEX LOWER EXTREMITY BY VASCULAR LAB 2020-02-29 23:29:24 Sanjay Nash [facility] POCT TEST 2020-02-29 23:21:00 Tobi Nash [facility] URINALYSIS 2020-02-29 23:17:00 Sanjay Nash [facility] COMP. METABOLIC PANEL (98456) 2020-02-29 23:13:00 Sanjay Nash [facility] SEDIMENTATION RATE 2020-02-29 23:13:00 Sanjay Nash [facility] CBC WITH DIFF 2020-02-29 23:13:00 Sanjay Nash [facility] D-DIMER 2020-02-29 23:13:00 Sanjay Nash [facility] CREATINE KINASE 2020-02-29 23:13:00 Sanjay [facility] CONSENT/REFUSAL FOR DIAGNOSIS AND TREATMENT 2020-02-29 22:40:16 Doctor Unassigned, Sipsey [facility] NOTICE OF PRIVACY PRACTICES 2020-02-29 22:39:59 Doctor Unassigned, [place] [facility] Plan of Care Planned Activity Planned Date Details Comments Source Goal Plan of Care Note [code = 56978-7] Goal Plan of Care Note [code = 16995-6] Goal Plan of Care Note [code = 68669-6] Goal Plan of Care Note [code = 79155-8] Goal Plan of Care Note [code = 82089-4] Goal Plan of Care Note [code = 24113-9] Goal Plan of Care Note [code = 29779-9] Goal Plan of Care Note [code = 12697-6] Goal Plan of Care Note [code = 19170-1] Goal Plan of Care Note [code = 14032-2] Goal Plan of Care Note [code = 50981-7] Goal Plan of Care Note [code = 02897-1] Goal Plan of Care Note [code = 52597-3] Goal Plan of Care Note [code = 53318-3] Goal Plan of Care Note [code = 78501-4] Goal Plan of Care Note [code = 55134-1] Goal Plan of Care Note [code = 21063-9] Goal Plan of Care Note [code = 76056-5] Goal Plan of Care Note [code = 53654-3] Goal Plan of Care Note [code = 76528-4] Goal Plan of Care Note [code = 62010-5] Goal Plan of Care Note [code = 55626-1] Goal Plan of Care Note [code = 37266-2] Goal Plan of Care Note [code = 81284-2] Goal Plan of Care Note [code = 18546-0] Goal Plan of Care Note [code = 82919-3] Encounters Start Date/Time End Date/Time Encounter Type Admission Type Attending [facility] Care Department Encounter ID Source 2021-05-21 07:00:00 Inpatient Yuridia Thakkar [facility] [id number] [facility] 2023-09-07 09:54:42 2023-09-07 09:54:42 Outpatient [facility] [id number] Artemio Ann Charbel 2023-09-01 11:06:46 2023-09-01 11:06:46 Outpatient [facility] [id number] Artemio Ann Charbel 2023-04-06 00:00:00 2023-04-06 00:00:00 Outpatient GC_GCBZW_Ka diyala_S [facility] [id number] [facility] 2022-06-10 14:49:52 2022-06-10 14:49:52 Outpatient [facility] [id number] Artemio Ann Charbel 2022-03-19 08:07:17 2022-03-19 08:07:17 Outpatient [facility] [id number] Artemio Ann Charbel 2022-02-25 00:00:00 2022-02-25 00:00:00 Outpatient Visit [id number] 2020-05-27 11:00:00 2020-05-27 11:00:00 Outpatient FERMÍN GAVIN [facility] [id number] [facility] 2020-04-30 13:46:02 2020-04-30 14:01:02 Office Visit Fermín Osp[facility] [id number] [facility] 2020-04-30 13:45:00 2020-04-30 13:45:00 Outpatient FERMÍN GAVIN [facility] [id number] [facility] 2020-02-29 17:53:00 2020-02-29 19:50:00 Emergency , Sanjay Moore, Darian Forrest [facility] [id number] [facility] 2020-02-29 17:39:00 2020-02-29 17:39:00 Emergency [facility] [id number] [facility] Results Test Description Test Time Test Comments Results Result Co mments Source CULTURE, [id number] 09:29:28SPECIMEN NUMBER: [id number] CULTURE, URINE SPECIMEN NUMBER: [id number] SPECIMEN COMMENT: URINE SOURCE: URINE REPORT STATUS: FINAL FINAL REPORT: 09/03/2023 10-50,000 CFU/ML UROGENITAL CONCETTA PRESENT NO CO MMON PATHOGENS UNLESS OTHERWISE INDICATED, ALL TESTING PERFORMED AT [facility] [address] [place] [address] BRANCH SERVICE ASSOCIATE: YUN FOWLER M.D. CLIA NUMBER [id number] [facility] [place]. [id number] TEST, THINPREP, [id number] 17:25:25* Test Item Value Reference Range Interpretation Comme nts SOURCE: (test code = 8001) Cervical/Endoc ervical SLIDES: (test code = 8011) 1 LMP: (test code = 8021) 07/25/2022 SPECIMEN ADEQUACY: (test code = 90336) (NOTE) Satisfactory for evaluation. Endocervical cells/transformation zone component present. INTERPRETATION: (test code = 65312) NILM/NO EPITH. ABNORMALITY;SE E BELOW ---- NEGATIVE FOR INTRAEPITHELIAL LESION OR MALIGNANCY (NILM) - ORCHARDIST : (test code = 8101) Vamshi Richterimerindigo LOCATION: (test code = 00209) (NOTE) Specimens proces sed and interpreted at [facility], [address] [place] [address], , CLIA: [id number] CPT: (test code = 8140) (NOTE) [address] UNLESS OTH ERWISE INDICATED, COMPUTER AIDED AND ORCHARDIST SCREENING PERFORMED. The Pap test is a screening test with an inherent, but low probability of error. Your patient should be reminded to consult you immediately if she experiences any suspicious signs or symptoms, regardless of her Pap test result. An alternate report format containing images or consolidated prior Pap history is available as applicable. HPV HIGH RISK WITH GENOTYPE, [id number] 17:17:45* Test Item Value Reference Range Interpretation Comme nts HPV HIGH RISK INTERP (test code = 22234) NEGATIVE NEGATIVE HPV 16 (test code = 63628) NEGATIVE HPV 18 (test code = 78190) NEGATIVE HPV, HR, OTHER GENOTYPES (test code = 66309) NEGATIVE Testing methodol ogy is real-time PCR [...] TESTING PERFORMED AT [facility] [address] [place] [address] BRANCH SERVICE ASSOCIATE: YUN FOWLER M.D. CLIA NUMBER [id number] [place]. [id number] COMPREHENSIVE METABOLIC [id number] 05:58:13* Test Item Value Reference Range Interpretation Comme nts GLUCOSE (test code = 2216) 101 MG/DL 70-99 H BUN (test code = 2207) 9 MG/DL 6-20 CREATININE (test code = 2213) 0.63 MG/DL 0.60-1.30 eGFR (2020 CKD-EPI) (test code = ) 125 ML/MIN/1.73 >60 CALC BUN/CREAT (test code = 2234) 14 RATIO 6-28 SODIUM (test code = 2230) 139 MEQ/L 133-146 POTASSIUM (test code = 2227) 4.5 MEQ/L 3.5-5.4 CHLORIDE (test code = 2214) 101 MEQ/L 95-107 CARBON DIOXIDE (test code = 2205) 23 MEQ/L 19-31 CALCIUM (test code = 2208) 9.8 MG/DL 8.5-10.5 PROTEIN, TOTAL (test code = 2228) 7.9 G/DL 6.1-8.3 ALBUMIN (test code = 2200) 4.8 G/DL 3.5-5.2 CALC GLOBULIN (test code = 2239) 3.1 G/DL 1.9-3.7 CALC A/G RATIO (test code = 2233) 1.5 RATIO 1.0-2.6 BILIRUBIN, TOTAL (test code = 2206) 0.5 MG/DL See_Comment [Automated me ssage] The system which generated this result transmitted reference range: <=1.2. The reference range was not used to interpret this result as normal/abnormal. ALKALINE PHOSPHATASE (test code = 2203) 113 U/L 40-112 H AST (test code = 2217) 23 U/L 9-40 ALT (test code = 9) 19 U/L 5-40 CBC W/AUTO DIFF WITH [id number] 02:17:19* Test Item Value Reference Range Interpretation [...] 0.00-0.10 ABS NUCLEATED RBCS (test code = 68875) 0.00 K/UL 0.00-0.11 UNLESS OTHER WOLFE INDICATED, ALL TESTING [facility]MED [facility] [address] [place] [id number] BRANCH SERVICE ASSOCIATE: NIRMALA MALDONADO M.D. CLIA NUMBER [id number] [place]. [id number] GC AND CHLAMYDIA AMPLIFIED, [id number] 00:00:00* Test Item Value Reference Range Interpretation Comme nts GONORRHEA, TMA (test code = 61280) NEGATIVE CHLAMYDIA, TMA (test code = 15403) NEGATIVE HIV AB/AG COMBO RFLX [id number] 00:00:00* Test Item Value Reference Range Interpretation Comme nts HIV 1/2 4TH GEN, RFLX CONF ( test code = 3514) NON-REACTIVE GC AND CHLAMYDIA AMPLIFIED, [id number] 00:00:00* Test Item Value Reference Range Interpretation Comme nts GONORRHEA, TMA (test code = 12357) NEGATIVE CHLAMYDIA, TMA (test code = 90233) NEGATIVE HIV AB/AG COMBO RFLX [id number] 00:00:00* Test Item Value Reference Range Interpretation Comme nts HIV 1/2 4TH GEN, RFLX CONF ( test code = 3514) NON-REACTIVE PAP TEST, THINPREP, [id number] 00:00:00* Test Item Value Reference Range Interpretation [facility] SOURCE: (test code = 8001) Cervical/Endocervical SLIDES: (test code = 8011) 1 LMP: (test code = 8021) 04/18/2021 SPECIMEN ADEQUACY: (test code = 00582) (NOTE) INTERPRETATION: (test code = 48843) NILM/NO EPITH. ABNORMALITY;SEE BELOW ORCHARDIST: (test code = 8101) BANDAR Cuevas(ASCP) LOCATION: (test code = 70166) (NOTE) CPT: (test code = 8140) (NOTE) PAP TEST, THINPREP, [id number] 00:00:00* Test Item Value Reference Range Interpretation Comme [facility] SOURCE: (test code = 8001) Cervical/Endocervical SLIDES: (test code = 8011) 1 LMP: (test code = 8021) 04/18/2021 SPECIMEN ADEQUACY: (test code = 82927) (NOTE) INTERPRETATION: (test code = 85811) NILM/NO EPITH. ABNORMALITY;SEE BELOW ORCHARDIST: (test code = 8101) BANDAR Cuevas(ASCP) LOCATION: (test code = 34130) (NOTE) CPT: (test code = 8140) (NOTE) ACUTE HEPATITIS [id number] 00:00:00* Test Item Value Reference Range Interpretation Comme [facility] HEPATITIS A IgM (test code = 62807) NON-REACTIVE HEPATITIS B CORE IgM (test c ode = 4644) NON-REACTIVE HEPATITIS B SURF AG (test co de = 4717) NON-REACTIVE HEPATITIS C ANTIBODY (test c ode = 4619) NON-REACTIVE INTERPRETATION HEPATITIS A: (test code = 2552) (NOTE) INTERPRETATION HEPATITIS B: (test code = 07971) (NOTE) INTERPRETATION HEPATITIS C: (test code = 02412) (NOTE) ACUTE HEPATITIS [id number] 00:00:00* Test Item Value Reference Range Interpretation Comme nts HEPATITIS A IgM (test code = 09755) NON-REACTIVE HEPATITIS B CORE IgM (test c ode = 4644) NON-REACTIVE HEPATITIS B SURF AG (test co de = 2739) NON-REACTIVE HEPATITIS C ANTIBODY (test c ode = 4675) NON-REACTIVE INTERPRETATION HEPATITIS A: (test code = 2552) (NOTE) INTERPRETATION HEPATITIS B: (test code = 61930) (NOTE) INTERPRETATION HEPATITIS C: (test code = 11805) (NOTE) [id number] 00:00:00* Test Item Value Reference Range Interpretation Comme nts RPR RESULT (test code = 3501) NON-REACTIVE RPR TITER (test code = 3500) NOT INDIC. TITER [id number] 00:00:00* Test Item Value Reference Range Interpretation Comme nts RPR RESULT (test code = 3501) NON-REACTIVE RPR TITER (test code = 3500) NOT INDIC. TITER [id number] 00:00:00* Test Item Value Reference Range Interpretation Comme nts RPR RESULT (test code = 3501) NON-REACTIVE RPR TITER (test code = 3500) NOT INDIC. TITER VAGINAL PATHOGENS DNA [id number] 00:00:00* Test Item Value Reference Range Interpretation Comme nts OLGA LIDIA SPECIES (test code = ) NEGATIVE G. VAGINALIS (test code = 82940) NEGATIVE T. VAGINALIS (test code = 82820) NEGATIVE VAGINAL PATHOGENS DNA [id number] 00:00:00* Test Item Value Reference Range Interpretation Comme nts OLGA LIDIA SPECIES (test code = 12762) NEGATIVE G. VAGINALIS (test code = 72781) NEGATIVE T. VAGINALIS (test code = 54268) NEGATIVE HCG, [id number] 00:00:00* Test Item Value Reference Range Interpretation Comme nts HCG, QUANTITATIVE (test code = 2506) <5 MIU/ML HCG, [id number] 00:00:00* Test Item Value Reference Range Interpretation Comme nts HCG, QUANTITATIVE (test code = 2506) <5 MIU/ML HCG, [id number] 00:00:00* Test Item Value Reference Range Interpretation Comme nts HCG, QUANTITATIVE (test code = 2506) <5 MIU/ML VAGINAL PATHOGENS DNA [id number] 00:00:00* Test Item Value Reference Range Interpretation Comme nts OLGA LIDIA SPECIES (test code = 52710) NEGATIVE G. VAGINALIS (test code = 58941) POSITIVE T. VAGINALIS (test code = 00125) NEGATIVE VAGINAL PATHOGENS DNA [id number] 00:00:00* Test Item Value Reference Range Interpretation Comme nts OLGA LIDIA SPECIES (test code = 38546) NEGATIVE G. VAGINALIS (test code = 48335) POSITIVE T. VAGINALIS (test code = 14667) NEGATIVE CHLAMYDIA, AMPLIFIED, [id number] 00:00:00* Test Item Value Reference Range Interpretation Comme nts CHLAMYDIA, NAAT (test code = 84071) NEGATIVE CHLAMYDIA, AMPLIFIED, [id number] 00:00:00* Test Item Value Reference Range Interpretation Comme nts CHLAMYDIA, NAAT (test code = 07134) NEGATIVE GC, AMPLIFIED, [id number] 00:00:00* Test Item Value Reference Range Interpretation Comme nts GONORRHEA, NAAT (test code = 51322) NEGATIVE GC, AMPLIFIED, [id number] 00:00:00* Test Item Value Reference Range Interpretation Comme nts GONORRHEA, NAAT (test code = 55124) NEGATIVE CULTURE, URINE [ADDED]2020-09-14 00:00:00* Test Item Value Reference Range Interpretation Comme nts CULTURE, URINE (test code = 32591) SPECIMEN NUMBER: [id number] CULTURE, URINE [ADDED]2020-09-14 00:00:00* Test Item Value Reference Range Interpretation Comme nts CULTURE, URINE (test code = 60514) SPECIMEN NUMBER: [id number] HIV AB/AG COMBO RFLX [id number] 00:00:00* Test Item Value Reference Range Interpretation Comme nts HIV 1/2 4TH GEN, RFLX CONF ( test code = 3514) NON-REACTIVE HIV AB/AG COMBO RFLX [id number] 00:00:00* Test Item Value Reference Range Interpretation Comme nts HIV 1/2 4TH GEN, RFLX CONF ( test code = 3514) NON-REACTIVE [id number] 00:00:00* Test Item Value Reference Range Interpretation Comme nts RPR RESULT (test code = 3501) NON-REACTIVE RPR TITER (test code = 3500) NOT INDIC. TITER [id number] 00:00:00* Test Item Value Reference Range Interpretation Comme nts RPR RESULT (test code = 3501) NON-REACTIVE RPR TITER (test code = 3500) NOT INDIC. TITER [id number] 00:00:00* Test Item Value Reference Range Interpretation Comme nts RPR RESULT (test code = 3501) NON-REACTIVE RPR TITER (test code = 3500) NOT INDIC. TITER HEPATITIS PROFILE (A,B,C)2020-09-13 00:00:00* Test Item Value [...] (NOTE) INTERPRETATION HEPATITIS B: (test code = 26471) (NOTE) INTERPRETATION HEPATITIS C: (test code = 29541) (NOTE) HEPATITIS PROFILE (A,B,C)2020-09-13 00:00:00* Test Item [...] (NOTE) INTERPRETATION HEPATITIS B: (test code = 95631) (NOTE) INTERPRETATION HEPATITIS C: (test code = 61867) (NOTE) HEPATITIS A IgM [REFLEX]2020-09-13 00:00:00* Test Item Value Reference Range Interpretation Comme nts HEPATITIS A IgM (test code = 2728) NON-REACTIVE COMP. METABOLIC PANEL (28184)2020-03-01 00:02:00* Test Item Value Reference Range Interpretation Comme nts NA (test code = 1648682592) 137 mmol/L 135-145 K (test code = 7219756157) 3.9 mmol/L 3.5-5 CL (test code = 5502652161) 102 mmol/L 98-108 CO2 TOTAL (test code = 4264372871) 27 mmol/L 23-31 AGAP (test code = 6864480996) 2-16 BUN (test code = 1597956447) 10 mg/dL 7-23 GLUCOSE (test code = 5958064097) 109 mg/dL 70-110 CREATININE (test code = 1981526479) 0.63 mg/dL 0.5-1.04 TOTAL BILI (test code = 5605632336) 0.4 mg/dL 0.1-1.1 CALCIUM (test code = 6711079776) 9.1 mg/dL 8.6-10.6 T PROTEIN (test code = 4050656554) 7.1 g/dL 6.3-8.2 ALBUMIN (test code = 3716225919) 3.9 g/dL 3.5-5 ALK PHOS (test code = 5837172772) 76 U/L 34-122 ALTv (test code = 1742-6) 34 U/L 5-35 AST(SGOT) (test code = 5664163758) 36 U/L 13-40 eGFR Calculation (Non-) (test code = 9299767358) mL/min/1.73m2 eGFR Calculation () (test code = 6120373838) mL/min/1.73m2 JUDY (test code = JUDY) Association of Glomerular Filtration Rate (GFR) and Staging of Kidney Disease* + -+ + ---+| GFR (mL/min/1.73 m2) ?| With Kidney Damage ?| ?Without Kidney Damage+ -------+ ------+ ---------+| ?>90 ?| ?Stage one ?| ? Normal ?+ --+ -+ ----+| ?60-89 ?| ?Stage two ?| ? Decreased GFR ? + -+ + ---+| ?30-59 ?| ?Stage three ?| ? Stage three ? + -+ + ---+| ?15-29 ?| ?Stage four ? | ? Stage four ?+ --+ -+ ----+| ?<15 (or dialysis) ? ?| ?Stage five ? | ? Stage five ?+ --+ -+ ----+ *Each stage assumes the associated GFR level has been in effect for at least three months. ?Stages 1 to 5, with or without kidney disease, indicate chronic kidney disease. Notes: Determination of stages one and two (with eGFR >59mL/min/1.73 m2) requires estimation of kidney damage for at least three months as defined by structural or functional abnormalities of the kidney, manifested by either:Pathological abnormalities or Markers of kidney damage (including abnormalities in the composition of the blood or urine or abnormalities in imaging tests). [id number] 00:02:00* Test Item Value Reference Range Interpretation Comme nts CK (test code = 6971645707) 83 U/L 33-194 Lab Interpretation (test cod e = 06754-7) Normal [facility] [id number] 23:51:00* Test Item Value Reference Range Interpretation Comme nts ESR (test code = 6754018921) See_Comment H [Automated [employer] ge] The system which generated this result transmitted reference range: 0 - 20 mm/HR. The reference range was not used to interpret this result as normal/abnormal. Lab Interpretation (test code = 25798-7) Abnormal [facility] 23:49:00* Test Item Value Reference Range Interpretation Comme nts APPEARANCE (test code = 4617659169) Clear Clear COLOR (test code = 8423288773) Yellow Yellow PH (test code = 8833387445) 4.8-8.0 SP GRAVITY (test code = 5512505617) 1.003-1.030 GLU U QUAL (test code = 5670098933) Normal Normal BLOOD (test code = 5392298145) Negative Negative KETONES (test code = 0013232656) Negative Negative PROTEIN (test code = 2887-8) Negative Negative UROBILIN (test code = 8034235306) Normal Normal BILIRUBIN (test code = 9985591774) Negative Negative NITRITE (test code = 7598235657) Negative Negative LEUK LUIZ (test code = 3366930058) Negative Negative RBC/HPF (test code = 1509598055) See_Comment [Automated [employer] innocutis] The system which generated this result transmitted reference range: 0 - 3 HPF. The reference range was not used to interpret this result as normal/abnormal. WBC/HPF (test code = 7342041899) <1 See_Comment [Automated [employer] innocutis] The system which generated this result transmitted reference range: 0 - 5 HPF. The reference range was not used to interpret this result as normal/abnormal. BACTERIA (test code = 4667559095) Few Negative A MUCOUS (test code = 8712032465) Slight Negative LPF A SQ EPITH (test code = 9269113642) HPF Lab Interpretation (test code = 56491-1) Abnormal [id number] 23:46:00* Test Item Value Reference Range Interpretation Comments D-DIMER (test code = 7820934480) See_Comment H [Automated message] The system which generated this result transmitted reference range: <0.41 ?g/mL (FEU). The reference range was not used to interpret this result as normal/abnormal. JUDY (test code = JUDY) This test may be used in conjunction with a clinical pretest probability (PTP) assessment model to exclude venous thromboembolism (VTE) in patients suspected of deep venous thrombosis (DVT) and pulmonary embolism (PE) A D-Dimer value less than 0.50 ?g/ml (FEU) has a negative predicative value of 96 to 100% (95% CI)and 97 to 100% (95% CI) as an aid in the diagnosis of deep vein thrombosis (DVT) and pulmonary embolism when there is low or moderate pretest probability of PE or DVT. D-Dimer values are expressed in initial fibrinogen equivalent units (FEU)" The assay results should be used with other information, including the clinical context, in forming a diagnosis. Lab Interpretation (test code = 79094-7) Abnormal [facility] acute hospital WITH [id number] 23:25:00* Test Item Value Reference Range Interpretation Comme nts WBC (test code = 6690-2) See_Comment [Automated [employer]] The system which generated this result transmitted reference range: 4.30 - 11.10 10*3/?L. The reference range was not used to interpret this result as normal/abnormal. RBC (test code = 789-8) See_Comment [Automated [employer]] The system which generated this result transmitted reference range: 3.93 - 5.25 10*6/?L. The reference range was not used to interpret this result as normal/abnormal. HGB (test code = 718-7) 12.5 g/dL 11.6-15 HCT (test code = 4544-3) 37.9 % 35.7-45.2 MCV (test code = 787-2) 88.1 fL 80.6-95.5 MCH (test code = 785-6) 29.1 pg 25.9-32.8 MCHC (test code = 786-4) 33.0 g/dL 31.6-35.1 RDW-SD (test code = 19910-5) 39.5 fL 39-49.9 RDW-CV (test code = 788-0) 12.4 % 12-15.5 PLT (test code = 777-3) See_Comment [Automated [employer]] The system which generated this result transmitted reference range: 166 - 358 10*3/?L. The reference range was not used to interpret this result as normal/abnormal. MPV (test code = 20221-2) 11.1 fL 9.5-12.9 NRBC/100 WBC (test code = 6569078317) See_Comment [Automated [employer]] The system which generated this result transmitted reference range: 0.0 - 10.0 /100 WBCs. The reference range was not used to interpret this result as normal/abnormal. NRBC x10^3 (test code = 9187596747) <0.01 See_Comment [Automated [employer]] The system which generated this result transmitted reference range: 10*3/?L. The reference range was not used to interpret this result as normal/abnormal. GRAN MAT (NEUT) % (test code = 770-8) 46.9 % IMM GRAN % (test code = 4194283723) 0.30 % LYMPH % (test code = 736-9) 39.3 % MONO % (test code = 5905-5) 11.0 % EOS % (test code = 713-8) 1.9 % BASO % (test code = 706-2) 0.6 % GRAN MAT x10^3(ANC) (test code = 5428784197) 3.29 10*3/uL 1.88-7.09 IMM GRAN x10^3 (test code = 7319420515) <0.03 0-0.06 LYMPH x10^3 (test code = 731-0) 2.75 10*3/uL 1.32-3.29 MONO x10^3 (test code = 742-7) 0.77 10*3/uL 0.33-0.92 EOS x10^3 (test code = 711-2) 0.13 10*3/uL 0.03-0.39 BASO x10^3 (test code = 704-7) 0.04 10*3/uL 0.01-0.07 [id number]* Test Item Value Reference Range Interpretation Comme nts POCT PREG (test code = 1605) negative On board controls acceptable with C Line (test code = 3574) present POCT PREG LOT # (test code = 3575) [id number] POCT PREG TEST DATE ( test code = 3576) 02/03/2021 Lab Interpretation (test cod e = 73841-9) [facility] [id number] 00:00:00* Test Item Value Reference Range Interpretation Comme nts HCG, QUANTITATIVE (test code = 2506) <5 MIU/ML HCG, [id number] 00:00:00* Test Item Value Reference Range Interpretation Comme nts HCG, QUANTITATIVE (test code = 2506) <5 MIU/ML HCG, [id number] 00:00:00* Test Item Value Reference Range Interpretation Comme nts HCG, QUANTITATIVE (test code = 2506) <5 MIU/ML [id number] 00:00:00* Test Item Value Reference Range Interpretation Comme nts RPR RESULT (test code = 3501) NON-REACTIVE RPR TITER (test code = 3500) NOT INDIC. TITER GC AND CHLAMYDIA AMPLIFIED, [id number] 00:00:00* Test Item Value Reference Range Interpretation Comme nts GONORRHEA, TMA (test code = 71130) NEGATIVE CHLAMYDIA, TMA (test code = 48803) NEGATIVE VAGINAL PATHOGENS DNA [id number] 00:00:00* Test Item Value Reference Range Interpretation Comme nts OLGA LIDIA SPECIES (test code = ) NEGATIVE G. VAGINALIS (test code = 01089) POSITIVE T. VAGINALIS (test code = 88267) NEGATIVE GC AND CHLAMYDIA AMPLIFIED, [id number] 00:00:00* Test Item Value Reference Range Interpretation Comme nts GONORRHEA, TMA (test code = 66716) NEGATIVE CHLAMYDIA, TMA (test code = 48214) NEGATIVE [id number] 00:00:00* Test Item Value Reference Range Interpretation Comme nts RPR RESULT (test code = 3501) NON-REACTIVE RPR TITER (test code = 3500) NOT INDIC. TITER VAGINAL PATHOGENS DNA [id number] 00:00:00* Test Item Value Reference Range Interpretation Comme nts OLGA LIDIA SPECIES (test code = ) NEGATIVE G. VAGINALIS (test code = 49041) POSITIVE T. VAGINALIS (test code = 03762) NEGATIVE [id number] 00:00:00* Test Item Value Reference Range Interpretation Comme nts RPR RESULT (test code = 3501) NON-REACTIVE RPR TITER (test code = 3500) NOT INDIC. TITER HIV AB/AG COMBO RFLX [id number] 00:00:00* Test Item Value Reference Range Interpretation Comme nts HIV 1/2 4TH GEN, RFLX CONF ( test code = 3514) NON-REACTIVE PAP TEST, THINPREP, [id number] 00:00:00* Test Item Value Reference Range Interpretation Comme nts SOURCE: (test code = 8001) Vaginal SLIDES: (test code = 8011) 1 LMP: (test code = 8021) 02/16/2019 SPECIMEN ADEQUACY: (test code = 75658) (NOTE) INTERPRETATION: (test code = 74745) NILM/NO EPITH. ABNORMALITY;SEE BELOW ORCHARDIST: (test code = 8101) BANDAR Enciso(ASCP) LOCATION: (test code = 08777) (NOTE) CPT: (test code = 8140) (NOTE) PAP TEST, THINPREP, [id number] 00:00:00* Test Item Value Reference Range Interpretation Comme nts SOURCE: (test code = 8001) Vaginal SLIDES: (test code = 8011) 1 LMP: (test code = 8021) 02/16/2019 SPECIMEN ADEQUACY: (test code = 64778) (NOTE) INTERPRETATION: (test code = 78639) NILM/NO EPITH. ABNORMALITY;SEE BELOW ORCHARDIST: (test code = 8101) BANDAR Enciso(ASCP) LOCATION: (test code = 55089) (NOTE) CPT: (test code = 8140) (NOTE) HIV AB/AG COMBO RFLX [id number] 00:00:00* Test Item Value Reference Range Interpretation Comme nts HIV 1/2 4TH GEN, RFLX CONF ( test code = 3514) NON-REACTIVE VAGINAL PATHOGENS DNA [id number] 00:00:00* Test Item Value Reference Range Interpretation Comme nts OLGA LIDIA SPECIES (test code = 16778) NEGATIVE G. VAGINALIS (test code = 32872) POSITIVE T. VAGINALIS (test code = 87583) NEGATIVE VAGINAL PATHOGENS DNA [id number] 00:00:00* Test Item Value Reference Range Interpretation Comme nts OLGA LIDIA SPECIES (test code = 26636) NEGATIVE G. VAGINALIS (test code = 81753) POSITIVE T. VAGINALIS (test code = 46375) NEGATIVE VAGINAL PATHOGENS DNA [id number] 00:00:00* Test Item Value Reference Range Interpretation Comme nts OLGA LIDIA SPECIES (test code = 67881) NEGATIVE G. VAGINALIS (test code = 33311) POSITIVE T. VAGINALIS (test code = 44855) NEGATIVE VAGINAL PATHOGENS DNA [id number] 00:00:00* Test Item Value Reference Range Interpretation Comme nts OLGA LIDIA SPECIES (test code = 88157) NEGATIVE G. VAGINALIS (test code = 13532) POSITIVE T. VAGINALIS (test code = 42364) NEGATIVE CHLAMYDIA, AMPLIFIED, [id number] 00:00:00* Test Item Value Reference Range Interpretation Comme nts CHLAMYDIA, AMPLIFIED (test c ode = 92715) NEGATIVE CHLAMYDIA, AMPLIFIED, [id number] 00:00:00* Test Item Value Reference Range Interpretation Comme nts CHLAMYDIA, AMPLIFIED (test c ode = 71534) NEGATIVE GC, AMPLIFIED, [id number] 00:00:00* Test Item Value Reference Range Interpretation Comme nts GONORRHEA, AMPLIFIED (test c ode = 66524) NEGATIVE GC, AMPLIFIED, [id number] 00:00:00* Test Item Value Reference Range Interpretation Comme nts GONORRHEA, AMPLIFIED (test c ode = 59004) NEGATIVE CHLAMYDIA, AMPLIFIED, [id number] 00:00:00* Test Item Value Reference Range Interpretation Comme nts CHLAMYDIA, AMPLIFIED (test c ode = 43819) NEGATIVE CHLAMYDIA, AMPLIFIED, [id number] 00:00:00* Test Item Value Reference Range Interpretation Comme nts CHLAMYDIA, AMPLIFIED (test c ode = 51673) NEGATIVE GC, AMPLIFIED, [id number] 00:00:00* Test Item Value Reference Range Interpretation Comme nts GONORRHEA, AMPLIFIED (test c ode = 79584) POSITIVE GC, AMPLIFIED, [id number] 00:00:00* Test Item Value Reference Range Interpretation Comme nts GONORRHEA, AMPLIFIED (test c ode = 45646) POSITIVE VAGINAL PATHOGENS DNA [id number] 00:00:00* Test Item Value Reference Range Interpretation Comme nts OLGA LIDIA SPECIES (test code = 75433) NEGATIVE G. VAGINALIS (test code = 29108) POSITIVE T. VAGINALIS (test code = 79909) NEGATIVE VAGINAL PATHOGENS DNA [id number] 00:00:00* Test Item Value Reference Range Interpretation Comme nts OLGA LIDIA SPECIES (test code = ) NEGATIVE G. VAGINALIS (test code = 16371) POSITIVE T. VAGINALIS (test code = 05910) NEGATIVE HIV AB/AG COMBO RFLX [id number] 00:00:00* Test Item Value Reference Range Interpretation Comme nts HIV AB/AG COMBO RFLX CONF (t est code = 3514) NON-REACTIVE HIV AB/AG COMBO RFLX [id number] 00:00:00* Test Item Value Reference Range Interpretation Comme nts HIV AB/AG COMBO RFLX CONF (t est code = 3514) NON-REACTIVE [id number] 00:00:00* Test Item Value Reference Range Interpretation Comme nts RPR RESULT (test code = 3501) NON-REACTIVE RPR TITER (test code = 3500) NOT INDIC. TITER [id number] 00:00:00* Test Item Value Reference Range Interpretation Comme nts RPR RESULT (test code = 3501) NON-REACTIVE RPR TITER (test code = 3500) NOT INDIC. TITER [id number] 00:00:00* Test Item Value Reference Range Interpretation [...] (NOTE) INTERPRETATION HEPATITIS B: (test code = 81998) (NOTE) INTERPRETATION HEPATITIS C: (test code = 04149) (NOTE) HEPATITIS PROFILE (A,B,C)2015-04-18 00:00:00* Test Item [...] (NOTE) INTERPRETATION HEPATITIS B: (test code = 73135) (NOTE) INTERPRETATION HEPATITIS C: (test code = 14560) (NOTE) HEPATITIS A IgM [REFLEX]2015-04-18 00:00:00* Test Item Value Reference Range Interpretation Comme nts HEPATITIS A IgM (test code = 2728) NON-REACTIVE
--- NOTE | 2023-09-13 12:42 | EDPHYS ---
Physician Documentation [facility] Name: Roxanna Avelar Age: 28 yrs Sex: Female : 1995 Arrival Date: 09/13/2023 Time: 09:49 Bed 8 Private MD: ED Physician Amalia Nettles HPI: 09/12 11:34 This 28 yrs old Female presents to ER via Ambulatory with complaints of ci Preg-doesnt know how many weeks, Vaginal Bleeding. 11:34 Patient is a 28 yea old female with PMH ectopic who presents with persistent ci vaginal bleeding. Patient was seen in the ED yesterday and told to return in 48hrs but patient presenting today because bleeding is worse and had some clots. FDLMP unclear, reports it maybe 07/25/2023. Denies abdominal pain, N/V. 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 - Infectious Disease History:: Denies. - Social history:: Smoking status: Patient denies any tobacco usage or history of. ROS: 11:34 Constitutional: Negative for fever, chills, and weight loss, Eyes: Negative for injury, ci pain, redness, and discharge, ENT: Negative for injury, pain, and discharge, Neck: Negative for injury, pain, and swelling, Cardiovascular: Negative for chest pain, palpitations, and edema, Respiratory: Negative for shortness of breath, cough, wheezing, and pleuritic chest pain, Abdomen/GI: Negative for abdominal pain, nausea, vomiting, diarrhea, and constipation, Back: Negative for injury and pain, : Negative for injury, discharge, and swelling. Positive vaginal bleeding, MS/Extremity: Negative for injury and deformity, Skin: Negative for injury, rash, and discoloration, Neuro: Negative for headache, weakness, numbness, tingling, and seizure, Psych: Negative for depression, anxiety, suicide ideation, homicidal ideation, and hallucinations, Exam: 11:34 Constitutional: This is a well developed, well nourished patient who is awake, alert, ci and in no acute distress. Head/Face: Normocephalic, atraumatic. Eyes: Pupils equal round and reactive to light, extra-ocular motions intact. Lids and lashes normal. Conjunctiva and sclera are non-icteric and not injected. Cornea within normal limits. Periorbital areas with no swelling, redness, or edema. ENT: Nares patent. No nasal discharge, no septal abnormalities noted. Tympanic membranes are normal and external auditory canals are clear. Oropharynx with no redness, swelling, or masses, exudates, or evidence of obstruction, uvula midline. Mucous membranes moist. Neck: Trachea midline, no thyromegaly or masses palpated, and no cervical lymphadenopathy. Supple, full range of motion without nuchal rigidity, or vertebral point tenderness. No Meningismus. Chest/axilla: Normal chest wall appearance and motion. Nontender with no deformity. No lesions are appreciated. Cardiovascular: Regular rate and rhythm with a normal S1 and S2. No gallops, murmurs, or rubs. Normal PMI, no JVD. No pulse deficits. Respiratory: Lungs have equal breath sounds bilaterally, clear to auscultation and percussion. No rales, rhonchi or wheezes noted. No increased work of breathing, no retractions or nasal flaring. Abdomen/GI: Soft, non-tender, with normal bowel sounds. No distension or tympany. No guarding or rebound. No evidence of tenderness throughout. Back: No spinal tenderness. No costovertebral tenderness. Full range of motion. Skin: Warm, dry with normal turgor. Normal color with no rashes, no lesions, and no evidence of cellulitis. MS/ Extremity: Pulses equal, no cyanosis. Neurovascular intact. Full, normal range of motion. Neuro: Awake and alert, GCS 15, oriented to person, place, time, and situation. Cranial nerves II-XII grossly intact. Motor strength 5/5 in all extremities. Sensory grossly intact. Cerebellar exam normal. Normal gait. Psych: Awake, alert, with orientation to person, place and time. Behavior, mood, and affect are within normal limits. Vital Signs: 10:01 BP 134 / 86; Pulse 85; Resp 16 S; Pulse Ox 100% on R/A; Weight 75.3 kg (R); Height 5 kc6 ft. 2 in. (R); Pain 0/10; 10:12 BP 119 / 73; Pulse 84; Resp 14; Pulse Ox 100% ; ko1 12:32 BP 147 / 85; Pulse 81; Resp 15; Pulse Ox 100% ; ko1 10:01 Body Mass Index 30.36 (75.30 kg, 157.48 cm) 6 10:01 Pain Scale: Adult kc6 MDM: 09:53 Patient medically screened. ci 11:34 Differential diagnosis: abruptio placentae, ectopic , menometrorrhagia, ci ruptured ectopic . Data reviewed: vital signs, nurses notes, old medical records, Patient was seen in the ED yesterday evening. She had a first trimester ultrasound that shows early IUP. Patient's hCG yesterday was 2049. UA was unremarkable for UTI. Will repeat quantitative hCG today. lab test result(s). ED course: Patient arrives to the ED hemodynamically stable and in no acute distress. Ultrasound yesterday showed no ectopic , early IUP noted. hCG 2049. Patient is hemodynamically stable, she has no abdominal tenderness to palpation, low suspicion for ruptured ectopic. Preg will repeat hCG quant and reassess.. 09/12 10:21 Order name: HCG-Quantitative; Complete Time: 12:00 ci 09/12 12:00 Interpretation: HCGQ 1222. ci Administered Medications: No medications were administered Disposition Summary: 09/13/23 12:42 Discharge Ordered Notes: Location: Home ci Problem: an ongoing problem ci Symptoms: are unchanged ci Condition: Stable ci Diagnosis - Threatened ci Followup: ci - With: Private Physician - When: 2 - 3 days - Reason: Recheck today's complaints, Re-evaluation by your physician Discharge Instructions: - Discharge Summary Sheet ci - Threatened Miscarriage ci - Vaginal Bleeding During , First Trimester ci Forms: - Medication Reconciliation Form ci - Thank You Letter ci - Antibiotic Education ci - Prescription Opioid Use ci - Patient Portal Instructions ci - Leadership Thank You Letter ci Signatures: Dispatcher [employer] Jenny Gonzalez RN RN ll1 Symone Georges RN RN kc6 Amalia Nettles ci Corrections: (The following items were deleted from the chart) 10:03 09:53 PSHx: breast; ll1 kc6 10:03 09:53 PSHx: Ectopic; ll1 kc6
--- NOTE | 2023-09-13 12:42 | ER ---
Nurse's Notes [facility] Name: Roxanna Avelar Age: 28 yrs Sex: Female : 1995 Arrival Date: 09/13/2023 Time: 09:49 Bed 8 Private MD: Diagnosis: Threatened Presentation: 09/12 10:01 Chief complaint: Patient states: she was here yesterday for vaginal bleeding and kc6 discharged home. pt reports continued vaginal bleeding that is getting worse. Coronavirus screen: At this time, the client does not indicate any symptoms associated with coronavirus-19. Ebola Screen: No symptoms or risks identified at this time. Initial Sepsis Screen: Does the patient meet any 2 criteria? No. Patient's initial sepsis screen is negative. Does the patient have a suspected source of infection? No. Patient's initial sepsis screen is negative. Risk Assessment: Do you want to hurt yourself or someone else? Patient reports no desire to harm self or others. Onset of symptoms was September 13, 2023. 10:01 Method Of Arrival: Ambulatory [facility] 10:01 Acuity: ANA 3 kc6 Triage Assessment: 10:02 General: Appears in no apparent distress. comfortable, well groomed, well developed, kc6 Behavior is calm, cooperative, appropriate for age. Pain: Denies pain. EENT: No signs and/or symptoms were reported regarding the EENT system. Neuro: Level of Consciousness is awake, alert, obeys commands, Oriented to person, place, time, situation, Appropriate for age. Respiratory: Airway is patent Trachea midline Respiratory effort is even, unlabored, Respiratory pattern is regular, symmetrical. GI: No signs and/or symptoms were reported involving the gastrointestinal system. : Reports vaginal bleeding that is bright red, with clots, moderate flow, Denies pain. Derm: No signs and/or symptoms reported regarding the dermatologic system. Skin is intact, is healthy with good turgor, Skin is pink, warm \T\ dry. Musculoskeletal: No signs and/or symptoms reported regarding the musculoskeletal system. Circulation, motion, and sensation intact. Capillary refill < 3 seconds, Range of motion: intact in all extremities. 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 - Infectious Disease History:: Denies. - Social history:: Smoking status: Patient denies any tobacco usage or history of. Screenin:04 [facility] ED Fall Risk Assessment (Adult) History of falling in the last 3 months, kc6 including since admission No falls in past 3 months (0 pts) Confusion or Disorientation No (0 pts) Intoxicated or Sedated No (0 pts) Impaired Gait No (0 pts) Mobility Assist Device Used No (0 pt) Altered Elimination No (0 pt) Score/Fall Risk Level 0 - 2 = Low Risk. Abuse screen: Denies threats or abuse. Denies injuries from another. Nutritional screening: No deficits noted. Tuberculosis screening: No symptoms or risk factors identified. Assessment: 10:04 Reassessment: please see triage. kc6 11:04 Reassessment: Patient appears in no apparent distress at this time. No changes from [facility] previously documented assessment. Patient and/or family updated on plan of care and expected duration. Pain level reassessed. Patient is alert, oriented x 3, equal unlabored respirations, skin warm/dry/pink. 13:02 Reassessment: No changes from previously documented assessment. Patient and/or family ll1 updated on plan of care and expected duration. Pain level reassessed. Patient is alert, oriented x 3, equal unlabored respirations, skin warm/dry/pink. Vital Signs: 10:01 BP 134 / 86; Pulse 85; Resp 16 S; Pulse Ox 100% on R/A; Weight 75.3 kg (R); Height 5 kc6 ft. 2 in. (R); Pain 0/10; 10:12 BP 119 / 73; Pulse 84; Resp 14; Pulse Ox 100% ; ko1 12:32 BP 147 / 85; Pulse 81; Resp 15; Pulse Ox 100% ; ko1 10:01 Body Mass Index 30.36 (75.30 kg, 157.48 cm) [facility] 10:01 Pain Scale: Adult [facility] ED Course: 09:51 Patient arrived in ED. mg5 09:52 Arm band placed on Patient placed in an exam room, on a stretcher. ll1 09:53 Amalia Nettles is Attending Physician. ci 10:02 Triage completed. kc6 10:05 Patient has correct armband on for positive identification. Placed in gown. Bed in low kc6 position. Call light in reach. Side rails up X 1. Client placed on continuous cardiac and pulse oximetry monitoring. NIBP monitoring applied. 10:11 Sonali Adorno, RN is Primary Nurse. ko1 10:34 Warm blanket given. kc6 10:34 Initial lab(s) drawn, by me, sent to lab. kc6 10:34 HCG-Quantitative Sent. kc6 13:02 No provider procedures requiring assistance completed. IV discontinued, intact, ll1 bleeding controlled, No redness/swelling at site. Pressure dressing applied. 13:03 Provided Education on: n/a. ll1 Administered Medications: No medications were administered Medication: 13:03 VIS not applicable for this client. ll1 Outcome: 12:42 Discharge ordered by MD. ci 13:02 Discharged to home ambulatory, 1 13:02 Condition: stable 13:02 Discharge instructions given to patient, Instructed on discharge instructions, follow up and referral plans. Demonstrated understanding of instructions, follow-up care, 13:03 Patient left the ED. 1 Signatures: Jenny Jansen RN RN [email or web address] Symone Georges RN RN demetra Sonali Adorno, RN RN Jannie Mac mg5 Amalia Nettles ci Corrections: (The following items were deleted from the chart) 10:03 09:53 PSHx: breast; [place] [id number] 10:03 09:53 PSHx: Ectopic; ll1 [facility]
[2023-09-13 13:24] VITALS: BP 147/85; O2SAT 100
== END 2023-09-13 13:03 | disposition home or self-care (01) ==
LOC: ER 09:49
DX: O20.0 Threatened abortion (principal); Z98.82 Breast implant status
CPT/HCPCS: 36415; 84702; 99284